=== PATIENT | male | born 1960 | race Caucasian/White ===

== ENCOUNTER → 2017-07-27 08:25 | Outpatient (CLI) | payer OTHER, SELFPAY ==
[2017-07-27 08:06] VITALS: BP 151/102; BMI 27.6
[2017-07-27 10:45] LABS: Cholesterol 182 mg/dL (200); High Density Lipoprotein 36 mg/dL; PSA,Total - Annual Screen 2.32 ng/mL (0.00-4.00); Triglycerides 161 mg/dL; Very Low Density Lipoprotein 32 mg/dL (5-40)
== END ==
PROVIDERS: Family Provider Internal Medicine; PCP Internal Medicine; Visit Provider Internal Medicine
DX: Z00.00 Encounter for general adult medical examination without abnormal findings (principal); E78.5 Hyperlipidemia, unspecified; Z12.5 Encounter for screening for malignant neoplasm of prostate
CPT/HCPCS: 36415; 80061; 84153; G0103

== ENCOUNTER 2017-12-21 11:30 | Emergency (ER) | payer OTHER, SELFPAY ==
[2017-12-21 11:30] VITALS: BP 149/95; PULSE 65; RESP 16; TEMP 36.8; O2SAT 98; BMI 27.1
--- NOTE | 2017-12-21 11:48 | ED.VISSUMM ---
- ER Visit Summary Date of Service: 12/21/17 Chief Complaint: Painful lump over medial malleolus History of Present Illness: The patient is a 57 M who presents with acute swelling over the medial malleolus left ankle. He states there is no history of trauma. He has no pain with movement. He denies fever, chills night sweats. He denies history of gout. He states this has never occurred before. There are no alleviating, precipitating or exacerbating factors. Physical Examination: There is swelling over the medial malleolus with mild discomfort. The area is firm and has consistency of a ganglion cyst. Patient has palpable DP and PT pulse. He has full active range of motion. There is no erythema, warmth, fluctuance or induration. There is no lymphangitis nor is there any popliteal angle lymphadenopathy Test Results: None Emergency Department Course and Treatment: Will anesthetize area. Will attempt to aspirate fluid and then injected with 1 cc of Decadron and 2 cc of lidocaine Treatment Plan: Inject ganglion cyst and patient tolerated procedure well. Disposition: Discharged to home Impression: Ganglion cyst left medial ankle This note was generated with [employer] dictation software. It may contain incorrect words, spelling, and punctuation that were not noted in review of the chart prior to signing ED Disposition - Plan for ED Patient: Disposition: Home or Assisted Living Chief Complaint: Lower Extremity Injury Instructions: ED Cyst Ganglion Referrals: Adal Fry MD [Primary Care Provider] - As Needed
== END 2017-12-21 12:18 | disposition home or self-care (01) ==
PROVIDERS: Emergency Provider Emergency Medicine; Family Provider Internal Medicine; PCP Internal Medicine
DX: M67.472 Ganglion, left ankle and foot (principal); I10 Essential (primary) hypertension; K21.9 Gastro-esophageal reflux disease without esophagitis; Z79.899 Other long term (current) drug therapy; Z87.891 Personal history of nicotine dependence
CPT/HCPCS: 20612; 96374; 99282

== ENCOUNTER → 2018-03-04 16:10 | Outpatient (CLI) | payer OTHER, SELFPAY ==
--- NOTE | 2018-03-04 16:20 | MRI_ITS ---
STUDY: MRI LEFT ANKLE WITHOUT CONTRAST REASON FOR EXAM: Lump on the medial malleolus for 2 months, no specific injury. TECHNIQUE: Standardized fat and water weighted pulse sequences were obtained in all 3 orthogonal planes. COMPARISON: None. FINDINGS: There is mild edema in the medial subcutis adipose space without discrete soft tissue mass. Normal posterior tibialis tendon. There is a small type II accessory navicular. Normal flexor digitorum longus tendon. Normal flexor hallucis longus tendon. Normal peroneus longus and brevis tendons. Normal tibialis anterior tendon. Normal extensor hallucis longus tendon. Normal extensor digitorum longus tendons. There is mild Achilles tendinosis with mild fusiform thickening in the watershed zone (inversion recovery sagittal image 10) measuring 0.9 cm in AP dimension without discrete tendon tear. Normal plantar fascia. Normal plantar calcaneal tubercles. Normal intrinsic muscles of the rearfoot. Normal distal tibiofibular syndesmotic ligamentous complex. There is a chronic sprain of the anterior talofibular ligament (inversion recovery axial image 11). There is a chronic sprain of the calcaneofibular ligament (inversion recovery axial image 12). Normal subtalar ligaments and sinus tarsi. Normal deltoid ligamentous complexes. Normal plantar calcaneonavicular (spring) ligament. There are small anterior osteophytes of the distal tibia. Normal talar dome. Normal subtalar articulations. Normal talonavicular articulation. Normal calcaneocuboid articulation. Normal navicular-cuneiform articulations. There is an osseous excrescence of the medial malleolus (T1 axial images 10, 11; T2 coronal image 18), likely accounting for the palpable abnormality. There is a small cyst in the medial malleolus (inversion recovery sagittal image 4) and a small ossicle at the distal aspect of the medial malleolus (T1 sagittal image 6). There is chronic healed fracture deformity of the distal fibula (T1 sagittal images 16, 17). There is mild cystic change in the superior body of the calcaneus adjacent to the sinus tarsi. MRI/Lower Ext Joint Only (Routine) IMPRESSION: Osseous excrescence of the medial malleolus, likely accounting for the palpable abnormality. Chronic sprains of the anterior talofibular and calcaneofibular ligaments. Mild Achilles tendinosis. Chronic healed fracture deformity of the distal fibula. Mild edema in the medial subcutis adipose space without demonstrated soft tissue mass. Electronically Signed: Andrew Plunkett MD at 8:28 EDT Tel , Service support ,
== END ==
LOC: MRI 16:11
PROVIDERS: Family Provider Family Medicine; PCP Family Medicine; Visit Provider Podiatrist
DX: M79.9 Soft tissue disorder, unspecified (principal); M89.272 Other disorders of bone development and growth, left ankle and foot
CPT/HCPCS: 73721

== ENCOUNTER → 2018-04-29 08:10 | Outpatient (CLI) | payer OTHER, SELFPAY ==
--- NOTE | 2018-04-29 08:13 | CT_ITS ---
STUDY: CT CHEST WITH CONTRAST REASON FOR EXAM: Male, 57 years old. Vomiting. Dysphagia. Weight loss. The patient has a history of esophageal carcinoma. RADIATION DOSAGE (If Supplied By Facility): CTDIvol = ( 15.69 ) mGy, DLP = ( 521.42 ) mGycm TECHNIQUE: Transaxial imaging was performed following intravenous administration of 100 ml of Isovue 300 contrast material. Multiplanar coronal and sagittal images were reformatted. Individualized dose optimization techniques were used for this CT. COMPARISON: Comparison is made with prior study dated January 16, 2017. FINDINGS: A left-sided portacatheter is seen with the tip in the superior vena cava. Once again, the patient is status post esophageal resection of the mid and distal portion of the esophagus with gastric pull-through anastomosis. This is unchanged. Minimal increased linear markings at the lung base suggestive of scarring. Stable 5 mm nodule is seen in the posteromedial aspect of the right lower lobe adjacent to the right hemidiaphragm. There is no demonstrated pleural abnormality. Normal heart and pericardium. There are multiple small lymph nodes within the mediastinum, which are normal in size and morphology most compatible with reactive lymph hyperplasia. Normal hilar regions. Normal enhanced pulmonary arteries. Normal aorta arch and descending thoracic aorta. There are multi-level degenerative changes of the thoracic spine. Atrophy of the pancreas. CT/Chest WITH Contrast IMPRESSION: Status post esophageal resection with a gastric pull-through surgery. There has been essentially no change since prior study. Electronically Signed: Camden Curiel MD at 15:45 EST Tel [phone], Service support ,
== END ==
LOC: CT 08:11
PROVIDERS: Family Provider Family Medicine; PCP Family Medicine; Referring Provider Nurse Practitioner Family; Visit Provider Nurse Practitioner Family
DX: R11.10 Vomiting, unspecified (principal); R12 Heartburn; Z85.01 Personal history of malignant neoplasm of esophagus
CPT/HCPCS: 71260; Q9967; A4216

== ENCOUNTER → 2018-05-20 09:40 | Outpatient (CLI) | payer OTHER, SELFPAY ==
[2018-05-13 08:35] VITALS: BMI 27.4
[2018-05-20 11:21] LABS: Hemoglobin A1c 6.2 % (4.2-6.3)
--- OUTSIDE RECORDS SUMMARY | 2018-07-13 14:06 | XMS RPT_ITS ---
:1960 Author Organization OHIP Support Name Relationship Address Phone CINTHIA VIRY Unavailable [address] + [address] [employer] Unavailable [address] + [place] [id number] VIRY VICENTE Unavailable [address] + [address] [employer] Unavailable [address] + [place] [address] VIRY VICENT[employer] Unavailable [address] + [address] [employer] Unavailable [address] + [place]ij[place] [address] VIRY VICENT[employer] Unavailable [address] + [address] [employer] Unavailable [address] + [place]hij[place] [address] V[employer]Y [employer] Unavailable [address] + [address] [employer] Unavailable [address] + [place]ij[place] [address] VIRY VICENTE Unavailable [address] + [place] [phone] [facility] [employer] Unavailable [address] + [place]ij[place] [address] VIRY VICENT[employer] Unavailable [address] + [place] [phone] [facility] [employer] Unavailable [address] + [place] [address] VIRY VICENT[facility] Unavailable [address] + [place] [phone] [facility] [address] + [place] [address] VIRY VICENTE Unavailable [address] + [address] + [place] [address] VIRY VICENTE Unavailable [address] + [address] + [place] [address] VIRY VICENTE Unavailable [address] + [address] Unavailable [address] + [place] [address] KEYLA MEYERS Unavailable [address] + [address] Unavailable [address] + [place] [address] KEYLA MEYERS Unavailable [address] + [address] Unavailable [address] + [place] [address] KEYLA MEYERS Unavailable [address] + [address] Unavailable [address] + [place] [address] Care Team Providers Name Role Phone Carrillo Burleson Attending Unavailable Dave Torres Primary Care Unavailable Dave Torres Referring Unavailable Kallie, Alexandria Attending Unavailable Carrillo Burleson Referring Unavailable Dave Torres Primary Care Unavailable Carrillo Burleson Consulting Unavailable Kevinghe, Efewongbe Attending Unavailable Yadie, Efewongbe Referring Unavailable Dave Torres Primary Care Unavailable Oleghe, Efewongbe Attending Unavailable Oleghe, Efewongbe Referring Unavailable Oleghe, Efewongbe Primary Care Unavailable Oleghe, Efewongbe Primary Care Unavailable Anderson, Luis Attending Unavailable Oleghe, Efewongbe Attending Unavailable Oleghe, Efewongbe Referring Unavailable Oleghe, Efewongbe Primary Care Unavailable Oleghe, Efewongbe Attending Unavailable Oleghe, Efewongbe Referring Unavailable Torres, Dave Primary Care Unavailable Prah, Carrillo Attending Unavailable Torres, Dave Referring Unavailable Torres, Dave Primary Care Unavailable Prah, Carrillo Consulting Unavailable Vasuing, Ventura Attending Unavailable Ventura Vicente Referring Unavailable Torres, Dave Primary Care Unavailable Kallie, Alexandria Attending Unavailable Torres, Dave Referring Unavailable Torres, Dave Primary Care Unavailable Prah, Carrillo Consulting Unavailable Kallie, Alexandria Attending Unavailable Kallie, Alexandria Referring Unavailable Torres, Dave Primary Care Unavailable Prah, Carrillo Attending Unavailable Torres, Dave Referring Unavailable Torres, Dave Primary Care Unavailable Prah, Carrillo Consulting Unavailable Oleghe, Efewongbe Attending Unavailable Oleghe, Efewongbe Referring Unavailable Oleghe, Efewongbe Attending Unavailable Oleghe, Efewongbe Referring Unavailable Oleghe, Efewongbe Primary Care Unavailable Prah, Carrlilo Consulting Unavailable PROBLEMS PROBLEMS DATE TYPE CONDITION / CODE ATTENDING STATUS SOURCE 05/01/2018 Unknown K21.9 - Carrillo Burleson Active [facility] reflux disease [facility] without Repository esophagitis / K21.9(ICD-10) 04/24/2018 Unknown C15.5 - Malignant Kallie, Alexandria Active [facility] neoplasm of lower Community third of Hospital esophagus / Repository C15.5(ICD-10) 04/24/2018 Unknown R11.10 - Kallie, Alexandria Active [facility] Vomiting, Community unspecified / Hospital R11.10(ICD-10) Repository 04/24/2018 Unknown R12 - Heartburn / Kallie, Alexandria Active [facility] R12(ICD-10) [facility] Hospital Repository 04/24/2018 Unknown Z85.01 - Personal Kallie, Alexandria Active [facility] history of Community malignant Hospital neoplasm of Repository esophagus / Z85.01(ICD-10) 02/11/2018 Unknown C15.9 - [facility] esophagus, [facility] unspecified / Repository C15.9(ICD-10) 01/07/2018 Unknown R73.9 - Oleghe, Active [facility] Hyperglycemia, [place] Community unspecified / Hospital R73.9(ICD-10) Repository 01/07/2018 Unknown M67.472 - Olealexie, Active [facility] Ganglion, left [facility] ankle and foot / Hospital M67.472(ICD-10) Repository 07/27/2017 Unknown E78.5 - Oleghe, Active [facility] Hyperlipidemia, [facility] unspecified / Hospital E78.5(ICD-10) Repository 07/27/2017 Unknown Z00.00 - Olealexie, Active [facility] Encounter for [facility] medical Repository examination without abnormal findings / Z00.00(ICD-10) PROCEDURES PROCEDURES No Procedure Records FoundRESULTS RESULTS HEMOGLOBIN A1C Collected: 05/20/2018 Status: F Source: [place] 9:43 AM [facility] REPOSITORY TYPE CODE TESTS RESULT OUT OF RANGE REFERENCE UNITS LAB L501.9985 4.2-6.3 % Normal HGB A1C 6.2 Performed By: #### L501.9985 #### [facility] [address] [place], [address] INTERNAL MEDICINE Observed: 05/13/2018 Status: F Source: [place] OFFICE VISIT 4:41 PM [facility] REPOSITORY [facility] [address] [place] [address] [place] [address] OFFICE VISIT Date of Service: 05/13/18 MR#: [id number] Acct: [id number] Name: SEAN MEYERS Rep #: [id number] : 1960 Provider: Adal Fry MD Age/Sex: 57/M Location: [facility] Status: Signed Intake Vital Signs05/13/18 Body Mass Index (BMI) 27.4 05/13/18 Height 5 ft 11 in Intake Visit Reasons: 3 MO FU Chief Complaint: 3 month follow-up Is patient in pain?: No Allergies No Known Allergies Allergy (Verified 05/01/18 15:57) Medications Ibuprofen 200 mg PO PRN PRN 12/21/17 [History Confirmed 05/01/18] amlodipine 10 mg tablet 10 mg PO DAILY #90 tab 02/11/18 [Rx Confirmed 05/01/18] omeprazole 40 mg capsule,delayed release 40 mg PO DAILY #90 cap 04/16/18 [Rx Confirmed 05/01/18] [facility] Medical History Elevated cholesterol (Acute) Viral URI (Acute) Dehydration (Acute) Lung nodule (Acute) Esophageal cancer (Acute) Surgical History History of esophagectomy (Acute) History of tonsillectomy (Acute) Family History Mother Diabetes Arthritis Alzheimers disease Father Pancreatic cancer Hypertension Social History Smoking Status: Never smoker alcohol intake: current alcohol intake frequency: holidays/special occasions only substance use type: does not use what type of physical activity do you participate in: aerobics, weight training frequency: 5-6 times per week HPI HPI Chief Complaint: 3 month follow-up Details: SEAN MEYERS, is a 57yo M who presents to the office today for of hypertension. He states that at home his blood pressure typically is in the 130s over 90s mmHg. He reports compliance with his medications. He however has a blood pressure of about 146/100 during this visit. His is on his way to [place] for the of his grandchild. ROS Const Constitutional: No weight change, body ache, chills, fatigue, sleep problems, fever(s), change in appetite, snoring, weakness, frequent falls, headache(s) or excessive sweating Eyes Eyes: No change in vision, eye pain, light sensitivity or blurry vision ENT ENT: No headache(s), abnormal hearing, ear pain, tinnitus, nasal congestion, sore throat or neck pain Resp Respiratory: No snoring, cough, shortness of breath or wheezing Cardio Cardiology: No excessive sweating, chest pain at rest, chest pain with exertion, shortness of breath, dyspnea on exertion, palpitations, orthopnea or lightheadedness Gastro GI: Positive for heartburn; no abdominal pain, change in bowel habits, constipation, diarrhea, vomiting, nausea/dyspepsia or cramping Genitourinary Male: No painful urination, urinary incontinence, urinary frequency, urinary urgency, blood in urine, testicle pain or other Musc Musculoskeletal: No neck pain, abnormal walking, joint pain, back pain, limited range of motion, numbness or tingling Skin Skin: No redness, dry skin, itching, lesions, wounds or rash Neuro Neurology: No weakness, frequent falls, headache(s), abnormal hearing, abnormal walking, numbness, tingling, abnormal speech, dizziness or memory loss Psych Psychiatric: No change in appetite, No memory loss, No anxiety, No depression, No Thoughts of harming yourself/Others Endo Endocrine: No fatigue, excessive sweating, cold intolerance, increased thirst/drinking, heat intolerance, flushing or increased hunger Aller/Imm Allergy/Immunologic: No wheezing, itchy eyes, hives or seasonal allergy symptoms Prashant/Lymp Hematologic/Lymphatic: No easy bleeding, easy bruising or enlarged lymph nodes Exam Const General: cooperative, no acute distress, well developed Orientation: alert, awake, oriented x3 HENMT Head: normal to inspection, normocephalic Ears: hearing grossly normal bilaterally, TM's normal bilaterally Resp Effort AND Inspection: normal respiratory effort, able to speak in complete sentences Auscultation: Bilateral: Clear to Auscultation Cardio Rate: regular rate Rhythm: regular rhythm Heart Sounds: S1 normal, S2 normal GI Palpation: soft, no hepatosplenomegaly Neuro General: alert, awake, oriented x3, moves all extremities, CN's II-XI intact bilaterally Extrem General: no pedal edema Other: Psych Appearance: grossly normal Mental Status: mental status grossly normal Affect: normal affect Assessment AND Plan 1. Hypertension I10 Plan Patient reports better control at home however it appears elevated during this visit. Probably situational. On his way to [place] for the best of his fourth grandchild and is excited. We will make no changes to his medication at this time. Advised to continue blood pressure log and call the office if he notes persistently elevated blood pressure. Continue lifestyle and dietary modifications. 2. GERD (gastroesophageal reflux disease) K21.9 Plan Has noted worsening reflux especially at night. CAT scan done by oncology with no concerns. Scheduled to have an EGD with Dr. Small on 03 June. Continue omeprazole Will follow. This note was generated with [employer] dictation software. It may contain incorrect words, spelling, and punctuation that were not noted in checking the note before signing. Coding Level of Care Code Off vis,est,level 3 Diagnoses Hypertension I10 GERD (gastroesophageal reflux disease) K21.9 05/13/18 1641 <Electronically signed by Adal Fry MD> Date Adal Fry MD Cosigner Signature: Date (if applicable) CC: ONCOLOGY VISIT REPORT Observed: 05/01/2018 Status: F Source: [place] 5:11 PM [facility] RE[facility] [place] [address] OFFICE VISIT Date of Service: 05/01/18 1553 MR#: [id number] Acct: [id number] Name: SEAN MEYERS Rep #: [id number] : 1960 From: Carrillo Burleson MD Age/Sex: 57/M Location: [facility] Status: Signed Subjective - Date of Service Date of Service:: 05/01/18 - Chief Complaint F/U for GEJ adenocarcinoma, CT results. - History of Present Illness 57 year old man was in his usual state of health until May 2014. He experienced unintentional weight loss of nearly 50 pounds, accompanied by dysphagia. He underwent endoscopy on 11/13/2014. An esophageal mass was noted approximately 38 cm from the incisors. Pathology returned positive for invasive, poorly differentiated adenocarcinoma, CEA positive, p53 positive, CK 7-8 positive. He underwent a staging PET scan on 11/30/2014, which identified an area of avidity in the mid-distal esophagus generating an SUV of 37.2 and measuring 5.8 cm x 4.7 cm, as well as uptake in the left upper abdomen adjacent to the left hemidiaphragm with an SUV of 18.3. That area measured 20.5 x 28.9 mm. He completed 6 full cycles of concomitant chemoradiation with carboplatin and paclitaxel from 12/09/2014 through 01/13/2015. He underwent laparoscopic gastric devascularization on 03/16/2015 under the care of Dr. Simon at [facility] and later a minimally-invasive Lencho-Jaison esophagectomy per Dr. Simon and Dr. Pickens at [facility] on 04/02/2015. Postop course was complicated by hypertension and tachycardia. Final pathology showed the tumor measuring 5.7 x 3.7 x 1 cm with depth of invasion to adventitia. Surgical margins were uninvolved. Quiñones's esophagus was present. Post-treatment PET obtained 07/30/[address] chest and esophagram were obtained 01/16/2017 to address c/o retrosternal discomfort and vomiting after food in the evenings. CT showed stable changes, no evidence of metastatic disease and esophagram showed status post tracheal resection with gastric pull-through through with no evidence of recurrent mass or obstruction. He is on observation. CT chest was ordered for dysphagia and comes for follow up. - Past Medical/Social History Past Medical History Past Medical History: GERD,Hypertension Other Past Medical History: LUNGE NODULE DEHYDRATION VIRAL UPPER RESPIRATORY INFECTION ELEVATED CHOLESTEROL Cancer: Esophageal cancer Past Surgical History Surgical: Tonsillectomy Other Surgical History: esophagectomy Mar 2015 Family History Paternal Past Medical History: Hypertension Paternal History of Cancer Pancreatic cancer Maternal Past Medical History: Alzheimer's disease,Arthritis,Diabetes mellitus, Hypertension Social History Social History: No changes Smoking Status Never smoker Review of Systems Constitutional:: Denies: Fever, Sweats, Weight loss, Appetite change, Chills Gastrointestinal:: Reports: Reflux, Dysphagia Vital Signs Height 5 ft 11 in Weight: 88.904 kg Weight in Pounds 196.0 lbs Pulse Ox 97 - Physical Exam General: Alert, Oriented x3, No apparent distress Diagnostic Data: 04/29/[address]/Chest WITH Contrast IMPRESSION: Status post esophageal resection with a gastric pull-through surgery. There has been essentially no change since prior study. Electronically Signed: Camden Curiel MD at 15:45 ES Assessment and Plan Lower Esophageal cancer-adenocarcinoma, S/P chemoradiation therapy and surgery. CT chest shows no evidence of disease. Dysphagia? recurrence Plan is to obtain GI consult with Dr. Small. RTC 3 months Primary Care Provider: Dave Torres Referring Provider: Carrillo Burleson MD - Problem List (1) Cancer of lower third of esophagus Status: Resolved (2) History of esophageal cancer Status: Chronic (3) Dysphagia Status: Acute Code Visit Office Visits / Consults: [id number] OV L4 Est 05/01/18 1711 <Electronically signed by Carrillo Burleson MD> Date Carrillo Burleson MD Cosigner Signature: Date (if applicable) CC: Soy Small CHEST WITH CONTRAST Observed: 04/29/2018 Status: F Source: [place] 8:13 AM [facility] REPOSITORY [facility] Imaging Services [address] [place] [address] Chest WITH Contrast MR#: [id number] Acct: [id number] Name: SEAN MEYERS Rep #: [id number] : 1960 M 57 From: Camden Curiel MD PCP: Dave Torres MD Status: REG CLI Study: Chest WITH Contrast Date of Exam: 04/29/18 Exam# [id number] Ordering Dr: Alexandria Arreguin MESS ATTENDANT-Concepción STUDY: CT CHEST WITH CONTRAST REASON FOR EXAM: Male, 57 years old. Vomiting. Dysphagia. Weight loss. The patient has a history of esophageal carcinoma. RADIATION DOSAGE (If Supplied By Facility): CTDIvol = ( 15.69 ) mGy, DLP = ( 521.42 ) mGycm TECHNIQUE: Transaxial imaging was performed following intravenous administration of 100 ml of Isovue 300 contrast material. Multiplanar coronal and sagittal images were reformatted. Individualized dose optimization techniques were used for this CT. COMPARISON: Comparison is made with prior study dated January 16, 2017. FINDINGS: A left-sided portacatheter is seen with the tip in the superior vena cava. Once again, the patient is status post esophageal resection of the mid and distal portion of the esophagus with gastric pull-through anastomosis. This is unchanged. Minimal increased linear markings at the lung base suggestive of scarring. Stable 5 mm nodule is seen in the posteromedial aspect of the right lower lobe adjacent to the right hemidiaphragm. There is no demonstrated pleural abnormality. Normal heart and pericardium. There are multiple small lymph nodes within the mediastinum, which are normal in size and morphology most compatible with reactive lymph hyperplasia. Normal hilar regions. Normal enhanced pulmonary arteries. Normal aorta arch and descending thoracic aorta. There are multi-level degenerative changes of the thoracic spine. Atrophy of the pancreas. CT/Chest WITH Contrast IMPRESSION: Status post esophageal resection with a gastric pull-through surgery. There has been essentially no change since prior study. Electronically Signed: Camden Curiel MD at 15:45 EST Tel [phone], Service support , CC: Dave Torres MD; Alexandria Arreguin NP Change Management Administrator: Signed ONCOLOGY VISIT REPORT Observed: 04/24/2018 Status: F Source: [place] 11:51 AM [facility] REPOSITORY [facility] [address] [place] [id number] OFFICE VISIT Date of Service: 04/23/18 1406 MR#: [id number] Acct: [id number] Name: SEAN MEYERS Rep #: [id number] : 1960 From: Alexandria Arreguin NP-Concepción Age/Sex: 57/M Location: [facility] Status: Signed Subjective - Date of Service Date of Service:: 04/23/18 - Chief Complaint Acute visit- Dysphagia, reflux, vomiting - History of Present Illness 57 year old man was in his usual state of health until May 2014. He experienced unintentional weight loss of nearly 50 pounds, accompanied by dysphagia. He underwent endoscopy on 11/13/2014. An esophageal mass was noted approximately 38 cm from the incisors. Pathology returned positive for invasive, poorly differentiated adenocarcinoma, CEA positive, p53 positive, CK 7-8 positive. He underwent a staging PET scan on 11/30/2014, which identified an area of avidity in the mid-distal esophagus generating an SUV of 37.2 and measuring 5.8 cm x 4.7 cm, as well as uptake in the left upper abdomen adjacent to the left hemidiaphragm with an SUV of 18.3. That area measured 20.5 x 28.9 mm. He completed 6 full cycles of concomitant chemoradiation with carboplatin and paclitaxel from 12/09/2014 through 01/13/2015. He underwent laparoscopic gastric devascularization on 03/16/2015 under the care of Dr. Simon at [facility] and later a minimally-invasive Lencho-Jaison esophagectomy per Dr. Simon and Dr. Pickens at [facility] on 04/02/2015. Postop course was complicated by hypertension and tachycardia. Final pathology showed the tumor measuring 5.7 x 3.7 x 1 cm with depth of invasion to adventitia. Surgical margins were uninvolved. Quiñones's esophagus was present. Post-treatment PET obtained 07/30/[address] chest and esophagram were obtained 01/16/2017 to address c/o retrosternal discomfort and vomiting after food in the evenings. CT showed stable changes, no evidence of metastatic disease and esophagram showed status post tracheal resection with gastric pull-through through with no evidence of recurrent mass or obstruction. He is on observation. - Interval History The patient is presenting to clinic for an acute visit at his request with c/o heartburn and vomiting. Reports he is able to eat relatively large breakfast and light lunch with no difficulties. The evening meal he takes at 4 pm and vomiting at midnight. x 4 months worsening. Estimates emesis is occurring approximately twice to 3 times per week. Adherent to PPI. C/o fatigue, typically active kayaking and hiking through the summer and now is unable to engage in activity outside of work. Lost approx 10 lb/2 weeks according to his scale at home. - Past Medical/Social History Past Medical History Past Medical History: GERD,Hypertension Other Past Medical History: LUNGE NODULE DEHYDRATION VIRAL UPPER RESPIRATORY INFECTION ELEVATED CHOLESTEROL Cancer: Esophageal cancer Past Surgical History Surgical: Tonsillectomy Other Surgical History: esophagectomy Mar 2015 Family History Paternal Past Medical History: Hypertension Paternal History of Cancer Pancreatic cancer Maternal Past Medical History: Alzheimer's disease,Arthritis,Diabetes mellitus, Hypertension Social History Social History: No changes Smoking Status Never smoker Review of Systems Constitutional:: Reports: Fatigue, Weight loss. Denies: Fever, Sweats, Appetite change, Chills Cardiovascular:: Denies: Chest pain, Palpitations, Dyspnea on exertion, Orthopnea, PND, Shortness of breath Respiratory: Denies: Cough, Hemoptysis, Shortness of Breath, Wheezing Gastrointestinal:: Reports: Vomiting, Reflux. Denies: Abdominal pain, Nausea, Diarrhea, Constipation, Melena, Hematochezia Genitourinary: Denies: Dysuria, Hematuria, Urinary frequency, Flank pain Musculoskeletal:: Denies: Back pain, Myalgia, Arthralgia Skin: Denies: Rash, Skin Changes, Wounds Neurological:: Denies: Headache, Dizziness, Numbness, Tingling, Visual changes, Tinnitus, Hearing loss Psychiatric: Denies: Anxiety, Depression, Homicidal Ideations, Suicidal Ideations Vital Signs Height 5 ft 11 in Weight: 196 lb Weight in Pounds 196.0 lbs Pulse Ox 97 - Physical Exam General: Alert, Oriented x3, No apparent distress HEENT: Atraumatic, Normocephalic Oropharynx:: Negative for: Dry mucosa, Ulcerated lesions Neck:: Supple, Trachea midline. Negative for: JVD, bilateral Cardiac:: Regular rate, Regular rhythm, Normal S1, Normal S2. Negative for: Murmur Lungs: Clear to auscultation, Excusion symmetrical. Negative for: Rhonchi, Wheezes Abdomen:: Bowel sounds x 4, Soft, Non-tender, Non-distended. Negative for: Hepatosplenomegaly Extremities:: Negative for: Cyanosis, Edema Neurological: Neuro grossly intact Skin:: Negative for: Lesions, Rash, Petechiae, Ecchymosis Psychiatric:: Appropriate affect, Euthymic Lymphatics:: Negative for: Cervical lymphadenopathy, Supraclavicular lymphadenopathy, Axillary lymphadenopathy Assessment and Plan 1. 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 Pickens/Dr. Simon on 04/02/15. 2. Acute vomiting/worsening reflux- Concerning as symptoms are accompanied by approx 10 lb weight loss/2 weeks and fatigue/generalized weakness. Patient adherent to use of PPI and has not made dietary changes. Orders placed for CT chest, although direct visualization will likely be necessary. RTO 1-2 days after scan to review results, high probability patient will require referral to Dr. Small for EGD. Patient was in agreement with the aforementioned plan. Alexandria Arreguin, MSN, COMMUNITY DEVELOPMENT COORDINATOR-C, AOCNP Primary Care Provider: Dave Torres Referring Provider: Carrillo Burleson MD - Problem List (1) Cancer of lower third of esophagus Status: Resolved (2) Vomiting Status: Acute Qualifiers: Vomiting Intractability: unspecified Nausea presence: without nausea (3) Weight loss Status: Acute 04/24/18 1151 <Electronically signed by Alexandria Arreguin MESS ATTENDANT-C> Date Alexandria Arreguin MESS ATTENDANT-C Cosigner Signature: Date (if applicable) CC: CBC W/DIFF, AUTOMATED Collected: 04/23/2018 Status: F Source: [place] 3:00 PM [facility] REPOSITORY Order Comment: Reason for Laboratory Test . TYPE CODE TESTS RESULT OUT OF RANGE REFERENCE UNITS LAB L100.1000 4.4-11.0 K/mm3 Normal WBC 8.2 LAB L100.1200 4.6-6.2 M/mm3 Normal RBC 5.20 LAB L100.1300 13.0-16.5 g/dl Normal HGB 15.2 LAB L100.1400 40-54 % Normal HCT 45.0 LAB L100.1500 80-94 fL Normal MCV 86.5 LAB L100.1600 27.0-32.0 pg Normal MCH 29.2 LAB L100.1700 32-36 g/gl Normal MCHC 33.8 LAB L100.1810 11.6-14.6 % Normal RDW CV 13.9 LAB L100.1820 35.1-43.9 fl High RDW SD 44.0 LAB L100.1900 150-450 K/mm3 Normal PLT 210 LAB L100.2000 6.2-12.0 fl Normal MPV 11.1 LAB L100.2100 47-70 % High NEUT% 74.9 LAB L100.2200 19-41 % Low LY% 14.8 LAB L100.2300 0-10 % Normal MONO% 8.2 LAB L100.2400 0-5 % Normal EO% 1.3 LAB L100.2500 0-1 % Normal BASO% 0.6 LAB L100.2550 0.0-0.9 % Normal IM GRAN % 0.200 Result Comment: IG% - Immature Granulocytes (promyelocytes, myelocytes and metamyelocytes) > 1% indicates that a LEFT SHIFT is Present. LAB L100.2620 2.0-7.7 X10 3/uL Normal Absolute Neut 6.1 LAB L100.2720 0.83-4.51 X10 3/ul Normal Absolute Lymph 1.21 Performed By: #### L100.0100 #### [facility] [address] [place], [place], [address] COMPREHENSIVE METABOLIC Collected: 04/23/2018 Status: F Source: [facility] 3:00 PM [facility] Order Comment: Reason for Laboratory Test . TYPE CODE TESTS RESULT OUT OF RANGE REFERENCE UNITS LAB L501.0100 74-106 mg/dL Normal GLU 80 Result Comment: Please note revised GLUCOSE reference range effective 2017. LAB L501.1000 7-18 mg/dL High BUN 20 LAB L501.1100 0.70-1.30 mg/dL Normal CREAT,SERUM 1.10 Result Comment: The validity of the calculated GFR AND GFRAA in patients over 70 years has not been determined. Clinical correlation is essential. LAB L501.1110 >60 mL/min Normal EST GFR 73 Result Comment: Non- GFR Calc LAB L501.1115 >60 mL/min Normal EST GFR - AA 88 Result Comment: GFR Calc LAB L501.1255 ml/min Normal Estimated CRCL 77.01 LAB L501.1300 10-20 RATIO Normal BUN/CRE 18.2 LAB L501.1500 6.4-8. g/dL Normal 2 T PROT 7.3 LAB L501.1800 3.2-5. g/dL Normal 0 ALB 3.8 LAB L501.1950 2.2-4. g/dL Normal 2 GLOB 3.5 LAB L501.2000 0.9-2. RATIO Normal 4 A/G 1.1 LAB L501.2200 8.5-10 mg/dL Normal .1 CA 8.7 LAB L501.4100 15-37 U/L Normal AST 20 LAB L501.4305 45-117 U/L High ALK P 149 LAB L501.4405 16-61 U/L Normal ALT 25 LAB L501.4600 0.20-1 mg/dL High .00 T BILI 1.10 LAB L501.5300 136-14 mmol/L Normal 5 NA 141 LAB L501.5600 3.5-5. mmol/L Normal 1 K 3.8 LAB L501.5900 98-107 mmol/L Normal CL 107 LAB L501.6100 21.0-3 mmol/L Normal 2.0 CO2 27.0 LAB L501.6200 5-15 Normal GAP 7 Performed By: #### L500.4050 #### [facility] [address] [facility] [place], [address] LOWER EXT JOINT ONLY Observed: 03/04/2018 Status: F Source: [place] (ROUTINE) 4:21 PM [facility] RE[facility]IT[facility] Imaging Services [address] [place] [address] Lower Ext Joint Only (Routine) MR#: [id number] Acct: [id number] Name: SEAN MEYERS Rep #: [id number] : 1960 M 57 From: Andrew Plunkett MD PCP: Dave Torres MD Status: REG CLI Study: Lower Ext Joint Only (Routine) Date of Exam: 03/04/18 Exam# [id number] Ordering Dr: Ventura Vicente DPMurali STUDY: MRI LEFT ANKLE WITHOUT CONTRAST REASON FOR EXAM: Lump on the medial malleolus for 2 months, no specific injury. TECHNIQUE: Standardized fat and water weighted pulse sequences were obtained in all 3 orthogonal planes. COMPARISON: None. FINDINGS: There is mild edema in the medial subcutis adipose space without discrete soft tissue mass. Normal posterior tibialis tendon. There is a small type II accessory navicular. Normal flexor digitorum longus tendon. Normal flexor hallucis longus tendon. Normal peroneus longus and brevis tendons. Normal tibialis anterior tendon. Normal extensor hallucis longus tendon. Normal extensor digitorum longus tendons. There is mild Achilles tendinosis with mild fusiform thickening in the watershed zone (inversion recovery sagittal image 10) measuring 0.9 cm in AP dimension without discrete tendon tear. Normal plantar fascia. Normal plantar calcaneal tubercles. Normal intrinsic muscles of the rearfoot. Normal distal tibiofibular syndesmotic ligamentous complex. There is a chronic sprain of the anterior talofibular ligament (inversion recovery axial image 11). There is a chronic sprain of the calcaneofibular ligament (inversion recovery axial image 12). Normal subtalar ligaments and sinus tarsi. Normal deltoid ligamentous complexes. Normal plantar calcaneonavicular (spring) ligament. There are small anterior osteophytes of the distal tibia. Normal talar dome. Normal subtalar articulations. Normal talonavicular articulation. Normal calcaneocuboid articulation. Normal navicular-cuneiform articulations. There is an osseous excrescence of the medial malleolus (T1 axial images 10, 11; T2 coronal image 18), likely accounting for the palpable abnormality. There is a small cyst in the medial malleolus (inversion recovery sagittal image 4) and a small ossicle at the distal aspect of the medial malleolus (T1 sagittal image 6). There is chronic healed fracture deformity of the distal fibula (T1 sagittal images 16, 17). There is mild cystic change in the superior body of the calcaneus adjacent to the sinus tarsi. MRI/Lower Ext Joint Only (Routine) IMPRESSION: Osseous excrescence of the medial malleolus, likely accounting for the palpable abnormality. Chronic sprains of the anterior talofibular and calcaneofibular ligaments. Mild Achilles tendinosis. Chronic healed fracture deformity of the distal fibula. Mild edema in the medial subcutis adipose space without demonstrated soft tissue mass. Electronically Signed: Andrew Plunkett MD at 8:28 EDT Tel , Service support , CC: Ventura Vicente DPM; Dave Torres MD Change Management Administrator: Signed INTERNAL MEDICINE Observed: 02/11/2018 Status: F Source: [place] OFFICE VISIT 3:29 PM [facility] REPOSIT[facility] [address] [place] [address] [place] [address] OFFICE VISIT Date of Service: 02/11/18 MR#: [id number] Acct: [id number] Name: SEAN MEYERS Rep #: [id number] : 1960 Provider: Adal Fry MD Age/Sex: 57/M Location: [facility] Status: Signed Intake Vital Signs02/11/18 Height 5 ft 11 in Intake Visit Reasons: 1 MO FU Chief Complaint: Follow up Hypertension Is patient in pain?: No Allergies No Known Allergies Allergy (Verified 12/21/17 11:33) Medications Ibuprofen 200 mg PO PRN PRN 12/21/17 [History Confirmed 12/21/17] Omeprazole 40 mg PO DAILY 12/21/17 [History Confirmed 12/21/17] amlodipine 10 mg tablet 10 mg PO DAILY #90 tab 02/11/18 [Rx Confirmed 02/11/18] PFSH Medical History Elevated cholesterol (Acute) Viral URI (Acute) Dehydration (Acute) Lung nodule (Acute) Esophageal cancer (Acute) Surgical History History of esophagectomy (Acute) History of tonsillectomy (Acute) Family History Mother Diabetes Arthritis Alzheimers disease Father Pancreatic cancer Hypertension Social History Smoking Status: Never smoker alcohol intake: current alcohol intake frequency: holidays/special occasions only substance use type: does not use what type of physical activity do you participate in: aerobics, weight training frequency: 5-6 times per week HPI HPI Chief Complaint: Follow up Hypertension Details: SEAN MEYERS, is a 57yo M who presents to the office today for follow-up of his blood pressure. He was recently started on amlodipine. He has tolerated the medication well. He has no complaints at this time. ROS Const Constitutional: No weight change, body ache, chills, fatigue, sleep problems, fever(s), change in appetite, snoring, weakness, frequent falls, headache(s) or excessive sweating Eyes Eyes: No change in vision, eye pain, light sensitivity or blurry vision ENT ENT: No headache(s), abnormal hearing, ear pain, tinnitus, nasal congestion, sore throat or neck pain Resp Respiratory: No snoring, cough, shortness of breath or wheezing Cardio Cardiology: No excessive sweating, chest pain at rest, chest pain with exertion, shortness of breath, dyspnea on exertion, palpitations, orthopnea or lightheadedness Gastro GI: No abdominal pain, change in bowel habits, constipation, diarrhea, vomiting, nausea/dyspepsia or cramping Genitourinary Male: No painful urination, urinary incontinence, urinary frequency, urinary urgency, blood in urine, testicle pain or other Musc Musculoskeletal: No neck pain, abnormal walking, joint pain, back pain, limited range of motion, numbness or tingling Skin Skin: No redness, dry skin, itching, lesions, wounds or rash Neuro Neurology: No weakness, frequent falls, headache(s), abnormal hearing, abnormal walking, numbness, tingling, abnormal speech, dizziness or memory loss Psych Psychiatric: No change in appetite, No memory loss, No anxiety, No depression, No Thoughts of harming yourself/Others Endo Endocrine: No fatigue, excessive sweating, cold intolerance, increased thirst/drinking, heat intolerance, flushing or increased hunger Aller/Imm Allergy/Immunologic: No wheezing, itchy eyes, hives or seasonal allergy symptoms Prashant/Lymp Hematologic/Lymphatic: No easy bleeding, easy bruising or enlarged lymph nodes Exam Const General: cooperative, no acute distress, well developed Orientation: alert, awake, oriented x3 [facility] Head: normal to inspection, normocephalic Ears: hearing grossly normal bilaterally, TM's normal bilaterally Resp Effort AND Inspection: normal respiratory effort, able to speak in complete sentences Auscultation: Bilateral: Clear to Auscultation Cardio Rate: regular rate Rhythm: regular rhythm Heart Sounds: S1 normal, S2 normal GI Palpation: soft, no hepatosplenomegaly Neuro General: alert, awake, oriented x3, moves all extremities, CN's II-XI intact bilaterally Extrem General: no pedal edema Other: 3x3cm firm medial ankle swelling noted. Non Tender. No discharge appreciated. Psych Appearance: grossly normal Mental Status: mental status grossly normal Affect: normal affect Assessment AND Plan 1. Hypertension I10 Plan Better however, still not optimally controlled. Increase amlodipine to 10 mg daily. Continue dietary and lifestyle modifications. Follow-up in 3 months 2. Borderline type 2 diabetes mellitus R73.03 Plan A1c of 6.1. Significant family history of diabetes in both his parents. Lifestyle and dietary modifications discussed. Repeat A1c in 3 months if still elevated, will start on metformin. Orders Orders: 3. Bone spur of left ankle M77.52 Plan Following up with podiatry. Plan is for surgery. Will follow 4. Health care maintenance Z00.00 Plan Colonoscopy done last year by DR. Small. 10 year follow up recommended. This note was generated with Star[employer], Part of [employer] software. It may contain incorrect words, spelling, and punctuation that were not noted in checking the note before signing. Plan Detail Other Medications New: Discontinued: Follow Up 3 Months Coding Level of Care Code Off vis,est,level 3 Diagnoses Hypertension I10 Borderline type 2 diabetes mellitus R73.03 Bone spur of left ankle M77.52 Health care maintenance Z00.00 02/11/18 1529 <Electronically signed by Adal Fry MD> Date Adal Fry MD Cosigner Signature: Date (if applicable) CC: ONCOLOGY VISIT REPORT Observed: 02/11/2018 Status: F Source: [place] 12:21 PM [facility] RE[facility] [address] [place] [address]. [place] [address] OFFICE VISIT Date of Service: 02/11/18 1211 MR#: [id number] Acct: [id number] Name: SEAN MEYERS Rep #: [id number] : 1960 From: Carrillo Burleson MD Age/Sex: 57/M Location: [facility] Status: Signed Subjective - Date of Service Date of Service:: 02/11/18 - Chief Complaint Follow up-esophageal cancer - History of Present Illness 57 year old man was in his usual state of health until May 2014. He experienced unintentional weight loss of nearly 50 pounds, accompanied by dysphagia. He underwent endoscopy on 11/13/2014. An esophageal mass was noted approximately 38 cm from the incisors. Pathology returned positive for invasive, poorly differentiated adenocarcinoma, CEA positive, p53 positive, CK 7-8 positive. He underwent a staging PET scan on 11/30/2014, which identified an area of avidity in the mid-distal esophagus generating an SUV of 37.2 and measuring 5.8 cm x 4.7 cm, as well as uptake in the left upper abdomen adjacent to the left hemidiaphragm with an SUV of 18.3. That area measured 20.5 x 28.9 mm. He completed 6 full cycles of concomitant chemoradiation with carboplatin and paclitaxel from 12/09/2014 through 01/13/2015. He underwent laparoscopic gastric devascularization on 03/16/2015 under the care of Dr. Simon at [facility] and later a minimally-invasive Wellston-Jaison esophagectomy per Dr. Simon and Dr. Pickens at [facility] on 04/02/2015. Postop course was complicated by hypertension and tachycardia. Final pathology showed the tumor measuring 5.7 x 3.7 x 1 cm with depth of invasion to adventitia. Surgical margins were uninvolved. Quiñones's esophagus was present. Post-treatment PET obtained 07/30/[address] chest and esophagram were gained 01/16/2017 to address c/o retrosternal discomfort and vomiting after food in the evenings. CT showed stable changes, no evidence of metastatic disease and esophagram showed status post tracheal resection with gastric pull-through through with no evidence of recurrent mass or obstruction. He is on observation, comes in for follow up. - Past Medical/Social History Past Medical History Past Medical History: GERD,Hypertension Other Past Medical History: LUNGE NODULE DEHYDRATION VIRAL UPPER RESPIRATORY INFECTION ELEVATED CHOLESTEROL Cancer: Esophageal cancer Past Surgical History Surgical: Tonsillectomy Other Surgical History: esophagectomy Mar 2015 Family History Paternal Past Medical History: Hypertension Paternal History of Cancer Pancreatic cancer Maternal Past Medical History: Alzheimer's disease,Arthritis,Diabetes mellitus, Hypertension Social History Social History: No changes Smoking Status Never smoker Review of Systems Constitutional:: Denies: Fever, Sweats, Weight loss, Appetite change, Chills Cardiovascular:: Denies: Chest pain, Palpitations, Dyspnea on exertion, Orthopnea, PND, Shortness of breath Respiratory: Denies: Cough, Hemoptysis, Shortness of Breath, Wheezing Gastrointestinal:: Reports: Reflux - at night. Genitourinary: Denies: Dysuria, Hematuria, 15, Flank pain Musculoskeletal:: Denies: Back pain, Myalgia, Arthralgia Skin: Denies: Rash, Skin Changes, Wounds Neurological:: Denies: Headache, Dizziness, Visual changes, Tinnitus, Hearing loss Psychiatric: Denies: Anxiety, Depression, Homicidal Ideations, Suicidal Ideations Vital Signs Height 5 ft 11 in Weight: 90.718 kg Weight in Pounds 200.0 lbs Pulse Ox 98 - Physical Exam General: Alert, Oriented x3, No apparent distress, - - Port L IC area. HEENT: Atraumatic, PERRLA, EOMI, Normocephalic Oropharynx:: Dry mucosa Neck:: Supple, Trachea midline. Negative for: JVD, bilateral Cardiac:: Regular rate, Regular rhythm, Normal S1, Normal S2. Negative for: Murmur Lungs: Clear to auscultation, Excusion symmetrical. Negative for: Rhonchi, Wheezes Abdomen:: Bowel sounds x 4, Soft, Non-tender, Non-distended, - - small scars.. Negative for: Hepatosplenomegaly Extremities:: Negative for: Cyanosis, Edema Neurological: Neuro grossly intact Skin:: Negative for: Lesions, Rash, Petechiae, Ecchymosis Psychiatric:: Appropriate affect, Euthymic Lymphatics:: Negative for: Cervical lymphadenopathy, Supraclavicular lymphadenopathy, Axillary lymphadenopathy Laboratory Data: Laboratory Tests WBC 7.4 (4.4-11.0) K/mm3 RBC 5.23 (4.6-6.2) M/mm3 Hgb 15.0 (13.0-16.5) g/dl Assessment and Plan Lower Esophageal cancer-adenocarcinoma, S/P chemoradiation therapy and surgery. No evidence of disease clinically. Plan is to continue observation. RTC 6 months Primary Care Provider: Dave Torres Referring Provider: Carrillo Burleson MD - Problem List (1) Cancer of lower third of esophagus Status: Resolved (2) History of esophageal cancer Status: Chronic Code Visit Office Visits / Consults: 36623 OV L3 Est 02/11/18 1221 <Electronically signed by Carrillo Burleson MD> Date Carrillo Burleson MD Cosigner Signature: Date (if applicable) CC: CBC W/DIFF, AUTOMATED Collected: 02/11/2018 Status: F Source: [place] 11:02 AM [facility] RE[facility] Order Comment: Reason for Laboratory Test OV TYPE CODE TESTS RESULT OUT OF RANGE REFERENCE UNITS LAB L100.1000 4.4-11.0 K/mm3 Normal WBC 7.4 LAB L100.1200 4.6-6.2 M/mm3 Normal RBC 5.23 LAB L100.1300 13.0-16.5 g/dl Normal HGB 15.0 LAB L100.1400 40-54 % Normal HCT 45.5 LAB L100.1500 80-94 fL Normal MCV 87.0 LAB L100.1600 27.0-32.0 pg Normal MCH 28.7 LAB L100.1700 32-36 g/gl Normal MCHC 33.0 LAB L100.1810 11.6-14.6 % Normal RDW CV 14.2 LAB L100.1820 35.1-43.9 fl High RDW SD 45.4 LAB L100.1900 150-450 K/mm3 Normal PLT 202 LAB L100.2000 6.2-12.0 fl Normal MPV 10.4 LAB L100.2100 47-70 % High NEUT% 76.7 LAB L100.2200 19-41 % Low LY% 15.2 LAB L100.2300 0-10 % Normal MONO% 5.1 LAB L100.2400 0-5 % Normal EO% 2.0 LAB L100.2500 0-1 % Normal BASO% 0.7 LAB L100.2550 0.0-0.9 % Normal IM GRAN % 0.300 Result Comment: IG% - Immature Granulocytes (promyelocytes, myelocytes and metamyelocytes) > 1% indicates that a LEFT SHIFT is Present. LAB L100.2620 2.0-7.7 X10 3/uL Normal Absolute Neut 5.7 LAB L100.2720 0.83-4.51 X10 3/ul Normal Absolute Lymph 1.13 Performed By: #### L100.0100, L500.4050 #### [facility] [address] [place], [address] COMPREHENSIVE METABOLIC Collected: 02/11/2018 Status: F Source: [facility] 11:02 AM [facility] RE[facility] Order Comment: Reason for Laboratory Test OV TYPE CODE TESTS RESULT OUT OF RANGE REFERENCE UNITS LAB L501.0100 74-106 mg/dL High GLU 131 Result Comment: Fasting Glucose result greater than or equal to 126 mg/dL suggests DIABETES MELLITUS per A.D.A. criteria. Please note revised GLUCOSE reference range effective 2017. LAB L501.1000 7-18 mg/dL Normal BUN 14 LAB L501.1100 0.70-1.30 mg/dL Normal CREAT,SERUM 1.13 Result Comment: The validity of the calculated GFR AND GFRAA in patients over 70 years has not been determined. Clinical correlation is essential. LAB L501.1110 >60 mL/min Normal EST GFR 71 Result Comment: Non- GFR Calc LAB L501.1115 >60 mL/min Normal EST GFR - AA 85 Result Comment: GFR Calc LAB L501.1255 ml/min Normal Estimated CRCL 74.97 LAB L501.1300 10-20 RATIO Normal BUN/CRE 12.4 LAB L501.1500 6.4-8. g/dL Normal 2 T PROT 7.5 LAB L501.1800 3.2-5. g/dL Normal 0 ALB 3.8 LAB L501.1950 2.2-4. g/dL Normal 2 GLOB 3.7 LAB L501.2000 0.9-2. RATIO Normal 4 A/G 1.0 LAB L501.2200 8.5-10 mg/dL Low .1 CA 8.4 LAB L501.4100 15-37 U/L Normal AST 18 LAB L501.4305 45-117 U/L High ALK P 150 LAB L501.4405 16-61 U/L Normal ALT 30 LAB L501.4600 0.20-1 mg/dL Normal .00 T BILI 0.80 LAB L501.5300 136-14 mmol/L Normal 5 NA 139 LAB L501.5600 3.5-5. mmol/L Normal 1 K 3.8 LAB L501.5900 98-107 mmol/L Normal CL 106 LAB L501.6100 21.0-3 mmol/L Normal 2.0 CO2 24.0 LAB L501.6200 5-15 Normal GAP 9 Performed By: #### L100.0100, L500.4050 #### [facility] [address] [place], [address] INTERNAL MEDICINE Observed: 01/14/2018 Status: F Source: [place] OFFICE VISIT 4:28 PM [facility] REPOSIT[facility] [address] [place] [address] [place] [address] OFFICE VISIT Date of Service: 01/07/18 MR#: [id number] Acct: [id number] Name: SEAN MEYERS Rep #: [id number] : 1960 Provider: Adal Fry MD Age/Sex: 57/M Location: [facility] Status: Signed Intake Vital Signs01/07/18 Height 5 ft 11 in 01/07/18 Weight: 194 lb 2 oz Intake Visit Reasons: F/U Chief Complaint: Follow up Hypertension Ortho Nurse Required: No Accompanied by: None Is patient in pain?: No Allergies No Known Allergies Allergy (Verified 12/21/17 11:33) Medications Ibuprofen 200 mg PO PRN PRN 12/21/17 [History Confirmed 12/21/17] Omeprazole 40 mg PO DAILY 12/21/17 [History Confirmed 12/21/17] amlodipine 5 mg tablet 5 mg PO QDAY #30 tab 01/07/18 [Rx Confirmed 01/07/18] PFSH Medical History Elevated cholesterol (Acute) Viral URI (Acute) Dehydration (Acute) Lung nodule (Acute) Esophageal cancer (Acute) Surgical History History of esophagectomy (Acute) History of tonsillectomy (Acute) Family History Mother Diabetes Arthritis Alzheimers disease Father Pancreatic cancer Hypertension Social History Smoking Status: Never smoker alcohol intake: current alcohol intake frequency: holidays/special occasions only substance use type: does not use what type of physical activity do you participate in: aerobics, weight training frequency: 5-6 times per week HPI HPI Chief Complaint: Follow up Hypertension Details: SEAN MEYERS, is a 57 M who presents to the office today for follow-up. At his last visit he was noted to have elevated blood pressure. He had been on amlodipine in the past however since his diagnosis of esophageal cancer had not been on any medications. Blood pressure over the last 3 months of average around 140s-150s over 90s. Recent left ankle swelling thought to be a ganglion cyst. Drained in the ER however, it recurred after 2 weeks. He denies any significant pain or discharge. He also denies chills, fever or otherwise feeling of unwell. ROS Const Constitutional: No body ache, chills, fatigue, fever(s), frequent falls, headache(s), weight change, sleep problems, change in appetite, snoring, excessive sweating or weakness Eyes Eyes: No blurry vision, change in vision, eye pain or light sensitivity ENT ENT: No headache(s), abnormal hearing, ear pain, tinnitus, nasal congestion, nasal discharge, sore throat or neck pain Resp Respiratory: No snoring, cough, shortness of breath or wheezing Cardio Cardiology: No excessive sweating, chest pain at rest, chest pain with exertion, shortness of breath, dyspnea on exertion, orthopnea, palpitations or lightheadedness Gastro GI: No abdominal pain, change in bowel habits, diarrhea, constipation, nausea/dyspepsia or cramping Musc Musculoskeletal: No neck pain, abnormal walking, joint pain, back pain, limited range of motion, numbness or tingling Skin Skin: No redness, dry skin, itching, lesions, wounds or rash Neuro Neurology: No frequent falls, headache(s), weakness, abnormal hearing, abnormal walking, numbness, tingling, abnormal speech, dizziness or memory loss Psych Psychiatric: No change in appetite, No memory loss, No anxiety, No depression, No Thoughts of harming yourself/Others Endo Endocrine: No fatigue, excessive sweating, cold intolerance, increased thirst/drinking, heat intolerance, increased hunger or flushing Aller/Imm Allergy/Immunologic: No wheezing, itchy eyes, seasonal allergy symptoms or hives Prashant/Lymp Hematologic/Lymphatic: No easy bleeding, easy bruising or enlarged lymph nodes Exam Const General: cooperative, no acute distress, well developed Orientation: alert, awake, oriented x3 HENMT Head: normal to inspection, normocephalic Ears: hearing grossly normal bilaterally, TM's normal bilaterally Resp Effort AND Inspection: normal respiratory effort, able to speak in complete sentences Auscultation: Bilateral: Clear to Auscultation Cardio Rate: regular rate Rhythm: regular rhythm Heart Sounds: S1 normal, S2 normal GI Palpation: soft, no hepatosplenomegaly Neuro General: alert, awake, oriented x3, moves all extremities, CN's II-XI intact bilaterally Extrem General: no pedal edema Other: 3x3cm firm medial ankle swelling noted. Non Tender. No discharge appreciated. Psych Appearance: grossly normal Mental Status: mental status grossly normal Affect: normal affect Assessment AND Plan 1. Hypertension I10 Plan Not controlled by life style modifications. Will start on 5 mg of Amlodipine daily. Increase to 10mg after BID if average blood pressure still in the 140's. A1C also ordered due to hyperglycemia Continue blood pressure log. Follow up in 1 month. 2. Ganglion cyst of left foot M67.472 Plan Recurred after drainage in the ER. Referred to Podiatry. Orders Referrals: 3. Hyperlipidemia E78.5 Plan Slightly low HDL, otherwise well controlled. Continue life style modifications. 4. Cancer of lower third of esophagus C15.5 Plan Continue follow-up with oncology. So far, there has been no recurrence. This note was generated with [employer] dictation software. It may contain incorrect words, spelling, and punctuation that were not noted in checking the note before signing. Plan Detail Other Orders Orders: Other Medications New: Coding Level of Care Code Off vis,est,level 4 Diagnoses Hypertension I10 Ganglion cyst of left foot M67.472 Hyperlipidemia E78.5 Cancer of lower third of esophagus C15.5 01/14/18 1628 <Electronically signed by Adal Fry MD> Date Adal Fry MD Cosigner Signature: Date (if applicable) CC: CBC W/DIFF, AUTOMATED Collected: 01/07/2018 Status: F Source: [place] 9:43 AM [facility] REPOSITORY Order Comment: Reason for Laboratory Test . TYPE CODE TESTS RESULT OUT OF RANGE REFERENCE UNITS LAB L100.1000 4.4-11.0 K/mm3 Normal WBC 5.8 LAB L100.1200 4.6-6.2 M/mm3 Normal RBC 5.36 LAB L100.1300 13.0-16.5 g/dl Normal HGB 15.6 LAB L100.1400 40-54 % Normal HCT 46.3 LAB L100.1500 80-94 fL Normal MCV 86.4 LAB L100.1600 27.0-32.0 pg Normal MCH 29.1 LAB L100.1700 32-36 g/gl Normal MCHC 33.7 LAB L100.1810 11.6-14.6 % Normal RDW CV 13.8 LAB L100.1820 35.1-43.9 fl Normal RDW SD 43.3 LAB L100.1900 150-450 K/mm3 Normal PLT 181 LAB L100.2000 6.2-12.0 fl Normal MPV 10.9 LAB L100.2100 47-70 % High NEUT% 75.2 LAB L100.2200 19-41 % Low LY% 13.3 LAB L100.2300 0-10 % Normal MONO% 8.8 LAB L100.2400 0-5 % Normal EO% 2.2 LAB L100.2500 0-1 % Normal BASO% 0.3 LAB L100.2550 0.0-0.9 % Normal IM GRAN % 0.200 Result Comment: IG% - Immature Granulocytes (promyelocytes, myelocytes and metamyelocytes) > 1% indicates that a LEFT SHIFT is Present. LAB L100.2620 2.0-7.7 X10 3/uL Normal Absolute Neut 4.3 LAB L100.2720 0.83-4.51 X10 3/ul Low Absolute Lymph 0.77 Performed By: #### L100.0100, L500.4050 #### [facility] Laboratory [address] [place], [place], [address] COMPREHENSIVE METABOLIC Collected: 01/07/2018 Status: F Source: [facility] 9:43 AM [facility] REPOSIT[facility] Order Comment: Reason for Laboratory Test . TYPE CODE TESTS RESULT OUT OF RANGE REFERENCE UNITS LAB L501.0100 74-106 mg/dL Normal GLU 92 Result Comment: Please note revised GLUCOSE reference range effective 2017. LAB L501.1000 7-18 mg/dL High BUN 20 LAB L501.1100 0.70-1.30 mg/dL Normal CREAT,SERUM 1.03 Result Comment: The validity of the calculated GFR AND GFRAA in patients over 70 years has not been determined. Clinical correlation is essential. LAB L501.1110 >60 mL/min Normal EST GFR 79 Result Comment: Non- GFR Calc LAB L501.1115 >60 mL/min Normal EST GFR - AA 95 Result Comment: GFR Calc LAB L501.1255 ml/min Normal Estimated CRCL 82.25 LAB L501.1300 10-20 RATIO Normal BUN/CRE 19.4 LAB L501.1500 6.4-8. g/dL Normal 2 T PROT 7.4 LAB L501.1800 3.2-5. g/dL Normal 0 ALB 3.8 LAB L501.1950 2.2-4. g/dL Normal 2 GLOB 3.6 LAB L501.2000 0.9-2. RATIO Normal 4 A/G 1.1 LAB L501.2200 8.5-10 mg/dL Normal .1 CA 8.9 LAB L501.4100 15-37 U/L Normal AST 20 LAB L501.4305 45-117 U/L High ALK P 147 LAB L501.4405 16-61 U/L Normal ALT 30 LAB L501.4600 0.20-1 mg/dL High .00 T BILI 1.10 LAB L501.5300 136-14 mmol/L Normal 5 NA 137 LAB L501.5600 3.5-5. mmol/L Normal 1 K 4.0 LAB L501.5900 98-107 mmol/L Normal CL 106 LAB L501.6100 21.0-3 mmol/L Normal 2.0 CO2 28.0 LAB L501.6200 5-15 Low GAP 3 Performed By: #### L100.0100, L500.4050 #### [facility] [address] [place], [address] HEMOGLOBIN A1C Collected: 01/07/2018 Status: F Source: [place] 9:42 AM [facility] REPOSITORY TYPE CODE TESTS RESULT OUT OF RANGE REFERENCE UNITS LAB L501.9985 4.2-6.3 % Normal HGB A1C 6.1 Performed By: #### L501.9985 #### [facility] [address] [place], [address] EMERGENCY DEPARTMENT Observed: 12/21/2017 Status: F Source: [place] SUMMARY 12:09 PM [facility] REPOSITORY [facility] Medical Records Department [address] [place] [address] Emergency Department Summary 12/21/17 1148 MR#: [id number] Acct: [id number] Name: SEAN MEYERS Rep #: [id number] : 1960 57 From: Luis Anderson MD PCP: Adal Fry MD Status: REG ER - ER Visit Summary Date of Service: 12/21/17 Chief Complaint: Painful lump over medial malleolus History of Present Illness: The patient is a 57 M who presents with acute swelling over the medial malleolus left ankle. He states there is no history of trauma. He has no pain with movement. He denies fever, chills night sweats. He denies history of gout. He states this has never occurred before. There are no alleviating, precipitating or exacerbating factors. Physical Examination: There is swelling over the medial malleolus with mild discomfort. The area is firm and has consistency of a ganglion cyst. Patient has palpable DP and PT pulse. He has full active range of motion. There is no erythema, warmth, fluctuance or induration. There is no lymphangitis nor is there any popliteal angle lymphadenopathy Test Results: None Emergency Department Course and Treatment: Will anesthetize area. Will attempt to aspirate fluid and then injected with 1 cc of Decadron and 2 cc of lidocaine Treatment Plan: Inject ganglion cyst and patient tolerated procedure well. Disposition: Discharged to home Impression: Ganglion cyst left medial ankle This note was generated with Firefly Mobile dictation software. It may contain incorrect words, spelling, and punctuation that were not noted in review of the chart prior to signing ED Disposition - Plan for ED Patient: Disposition: Home or Assisted Living Chief Complaint: Lower Extremity Injury Instructions: ED Cyst Ganglion Referrals: Adal Fry MD [Primary Care Provider] - As Needed What to do if you have Problems For any increased pain, shortness of breath, bleeding, nausea or vomiting, chest pain, or any unexpected problems, contact your Primary Care Provider. Call [facility] ([phone]) or report to the closest Emergency Room. Call 911 if necessary. 12/21/17 1209 <Electronically signed by Luis Anderson MD> Date Luis Anderson MD Cosigner Signature (If Indicated): Date CC: Adal Fry MD INTERNAL MEDICINE Observed: 07/27/2017 Status: F Source: [place] OFFICE VISIT 8:41 AM [facility] Internal Medicine [address] [place] [address] OFFICE VISIT Date of Service: 07/27/17 MR#: [id number] Acct: [id number] Name: SEAN MEYERS Murali Rep #: [id number] : 1960 Provider: Adal Fry MD Age/Sex: 56/M Location: [facility] Status: Signed Intake Vital Signs07/27/17 Body Mass Index (BMI) 27.6 07/27/17 Blood Pressure 151/102 07/27/17 Height 5 ft 11 in 07/27/17 Weight: 197 lb 07/27/17 Body Mass Index (BMI) 27.4 Intake Visit Reasons: NEEDS PCP SCHEDULED BY [facility] Chief Complaint: Establish care. Is patient in pain?: No Allergies No Known Allergies Allergy (Verified 07/25/17 13:01) Medications Omeprazole 40 mg PO DAILY 30 Days #30 capsule. 07/25/17 [Rx] PFSH Medical History Elevated cholesterol (Acute) Viral URI (Acute) Dehydration (Acute) Lung nodule (Acute) Esophageal cancer (Acute) Surgical History History of esophagectomy (Acute) History of tonsillectomy (Acute) Family History Mother Diabetes Arthritis Alzheimers disease Father Pancreatic cancer Hypertension Social History Smoking Status: Never smoker alcohol intake: current alcohol intake frequency: holidays/special occasions only substance use type: does not use what type of physical activity do you participate in: aerobics, weight training frequency: 5-6 times per week HPI HPI Chief Complaint: Establish care. Details: SEAN MEYERS, is a 56yo M who presents to the office today to establish care. His has a past medical history of hypertension, hyperlipidemia, GERD and esophageal cancer status post surgery and chemotherapy. He currently follows up with the oncology group. He has no acute complaints at this time. Blood pressure in the office today is noted to be mildly elevated at 138/97 mmHg. Patient is currently not on any medication. At some point he was treated with an antihypertensive however during his chemotherapy, he states that he lost a significant amount of weight and so was taken off his blood pressure medications due to very well controlled blood pressures. He was also on a lipid-lowering medication which was discontinued after weight loss. He has not had a lipid profile in years. Last colonoscopy was last year. Per patient, next recommended is in 10 years. He follows up with Dr. Small. He has had his flu shot. ROS Const Constitutional: No weight change, body ache, chills, fatigue, sleep problems, fever(s), change in appetite, snoring, weakness, frequent falls, headache(s) or excessive sweating Eyes Eyes: No change in vision, eye pain, light sensitivity or blurry vision ENT ENT: No headache(s), abnormal hearing, ear pain, tinnitus, nasal congestion, sore throat or neck pain Resp Respiratory: No snoring, cough or shortness of breath Cardio Cardiology: No excessive sweating, chest pain at rest, chest pain with exertion, shortness of breath, dyspnea on exertion, palpitations, orthopnea or lightheadedness Gastro GI: No abdominal pain, change in bowel habits, constipation, diarrhea, vomiting, nausea/dyspepsia or cramping Musc Musculoskeletal: No neck pain, abnormal walking, joint pain, back pain, limited range of motion, numbness or tingling Skin Skin: No redness, dry skin, itching, lesions, wounds or rash Neuro Neurology: No weakness, frequent falls, headache(s), abnormal hearing, abnormal walking, numbness, tingling, abnormal speech, dizziness or memory loss Psych Psychiatric: No change in appetite, No memory loss, No anxiety, No depression, No Thoughts of harming yourself/Others Endo Endocrine: No fatigue, excessive sweating, cold intolerance, increased thirst/drinking, heat intolerance, flushing or increased hunger Aller/Imm Allergy/Immunologic: No itchy eyes, hives or seasonal allergy symptoms Prashant/Lymp Hematologic/Lymphatic: No easy bleeding, easy bruising or enlarged lymph nodes Exam Const General: cooperative, no acute distress, well developed Orientation: alert, awake, oriented x3 HENIN Head: normal to inspection, normocephalic Ears: hearing grossly normal bilaterally, TM's normal bilaterally Resp Effort AND Inspection: normal respiratory effort, able to speak in complete sentences Auscultation: Bilateral: Clear to Auscultation Cardio Rate: regular rate Rhythm: regular rhythm Heart Sounds: S1 normal, S2 normal GI Palpation: soft, no hepatosplenomegaly Neuro General: alert, awake, oriented x3, moves all extremities, CN's II-XI intact bilaterally Extrem General: no pedal edema Psych Appearance: grossly normal Mental Status: mental status grossly normal Affect: normal affect Assessment AND Plan 1. Hypertension, unspecified type I10 Plan Chronic. Currently not on any medication. Blood pressure in the office today is 138/97. Patient does state that it typically runs around this range. Lifestyle modifications recommended for now with exercise, diet rich in fruits and veggies and low sodium. Blood pressure check once weekly. Follow-up in 3 months. 2. Hyperlipidemia E78.5 Plan Has had no recent follow-up since his significant weight loss. Previously on a lipid-lowering medication. Will get a lipid profile today. Follow-up with results. Lifestyle modifications as above. Orders Orders: 3. Preventative health care Z00.00 Plan He has had his flu shot. PSA screen. Orders Orders: 4. Esophageal cancer C15.9 Plan Status post surgery and chemotherapy. Patient is doing well. Follows up with oncology. Will follow. This note was generated with StarCite, Part of Active Networkation software. It may contain incorrect words, spelling, and punctuation that were not noted in checking the note before signing. Plan Detail Follow Up 3 Months Coding Level of Care Code Off vis,new,level 3 Diagnoses Hypertension, unspecified type I10 Hypertension type: unspecified Hyperlipidemia E78.5 [facility] health care Z00.00 Esophageal cancer C15.9 07/27/17 0841 <Electronically signed by Adal Fry MD> Date Adal Fry MD Cosigner Signature: Date (if applicable) CC: LIPID PROFILE Collected: 07/27/2017 Status: F Source: [place] 8:32 AM [facility] REPOSITORY TYPE CODE TESTS RESULT OUT OF RANGE REFERENCE UNITS LAB L501.4900 200 mg/dL Normal CHOL 182 Result Comment: <200 mg/dL Desirable 200-240 mg/dL Borderline >240 mg/dL High Risk LAB L501.5000 mg/dL Normal TRIG 161 Result Comment: The drugs N-Acetylcysteine and Metamizole may falsely depress this assay. Serum Triglycerides Reference Interval Normal <150 mg/dL Borderline high 150 - 199 mg/dL High 200 - 499 mg/dL Very High > or = 500 mg/dL LAB L501.6400 mg/dL Low HDL 36 Result Comment: The drugs N-Acetylcysteine and Metamizole may falsely depress this assay. Reference Range HDL <40 mg/dL Low HDL Cholesterol HDL >or= 60 mg/dL High HDL Cholesterol LAB L501.6500 0-130 mg/dL Normal LDL 114 LAB L501.6600 5-40 mg/dL Normal VLDL 32 Performed By: #### L500.4100, L501.9910 #### [facility] [address] [place], [address] PSA,TOTAL - ANNUAL Collected: 07/27/2017 Status: F Source: [place] SCREEN 8:32 AM [facility] REPOSITORY TYPE CODE TESTS RESULT OUT OF RANGE REFERENCE UNITS LAB L501.9910 0.00-4.00 ng/mL Normal PSA,TOT 2.32 SCREEN Result Comment: This test was performed using the TPSA assay method for the Delta ID chemistry system. Values obtained with different assay methods cannot be used interchangably. When changing PSA assays in the course of monitoring a patient, additional sequential testing should be carried out to confirm baseline values. Performed By: #### L500.4100, L501.9910 #### [facility] [address] [place], [place], [address] CBC W/DIFF, AUTOMATED Collected: 07/25/2017 Status: F Source: [place] 12:34 PM [facility] REPOSITORY TYPE CODE TESTS RESULT OUT OF RANGE REFERENCE UNITS LAB L100.1000 4.4-11.0 K/mm3 Normal WBC 8.3 LAB L100.1200 4.6-6.2 M/mm3 Normal RBC 5.27 LAB L100.1300 13.0-16.5 g/dl Normal HGB 15.5 LAB L100.1400 40-54 % Normal HCT 45.7 LAB L100.1500 80-94 fL Normal MCV 86.7 LAB L100.1600 27.0-32.0 pg Normal MCH 29.4 LAB L100.1700 32-36 g/gl Normal MCHC 33.9 LAB L100.1810 11.6-14.6 % Normal RDW CV 13.3 LAB L100.1820 35.1-43.9 fl Normal RDW SD 41.7 LAB L100.1900 150-450 K/mm3 Normal PLT 210 LAB L100.2000 6.2-12.0 fl Normal MPV 11.4 LAB L100.2100 47-70 % High NEUT% 82.7 LAB L100.2200 19-41 % Low LY% 9.8 LAB L100.2300 0-10 % Normal MONO% 5.2 LAB L100.2400 0-5 % Normal EO% 1.3 LAB L100.2500 0-1 % Normal BASO% 0.6 LAB L100.2550 0.0-0.9 % Normal IM GRAN % 0.400 Result Comment: IG% - Immature Granulocytes (promyelocytes, myelocytes and metamyelocytes) > 1% indicates that a LEFT SHIFT is Present. LAB L100.2620 2.0-7.7 X10 3/uL Normal Absolute Neut 6.8 LAB L100.2720 0.83-4.51 X10 3/ul Low Absolute Lymph 0.81 Performed By: #### L100.0100 #### [facility] [address] [facility] [place], [address] COMPREHENSIVE METABOLIC Collected: 07/25/2017 Status: F Source: [place] 12:33 PM [facility] REPOSITORY Order Comment: Reason for Laboratory Test SURVEILLANCE/OFFICE VISIT TYPE CODE TESTS RESULT OUT OF RANGE REFERENCE UNITS LAB L501.0100 74-106 mg/dL High GLU 111 Result Comment: Fasting Glucose result from 110 to <126 mg/dL suggests IMPAIRED HOMEOSTASIS per A.D.A. criteria. LAB L501.1000 7-18 mg/dL High BUN 19 LAB L501.1100 0.70-1.30 mg/dL Normal CREAT,SERUM 1.04 Result Comment: The validity of the calculated GFR AND GFRAA in patients over 70 years has not been determined. Clinical correlation is essential. LAB L501.1110 >60 mL/min Normal EST GFR 78 Result Comment: Non- GFR Calc LAB L501.1115 >60 mL/min Normal EST GFR - AA 94 Result Comment: GFR Calc LAB L501.1255 ml/min Normal Estimated CRCL 82.46 LAB L501.1300 10-20 RATIO Normal BUN/CRE 18.3 LAB L501.1500 6.4-8. g/dL Normal 2 T PROT 7.4 LAB L501.1800 3.2-5. g/dL Normal 0 ALB 3.9 LAB L501.1950 2.2-4. g/dL Normal 2 GLOB 3.5 LAB L501.2000 0.9-2. RATIO Normal 4 A/G 1.1 LAB L501.2200 8.5-10 mg/dL Normal .1 CA 8.6 LAB L501.4100 15-37 U/L Normal AST 16 LAB L501.4305 45-117 U/L High ALK P 157 LAB L501.4405 16-61 U/L Normal ALT 30 Result Comment: Please note revised ALT reference range effective 2017. LAB L501.4600 0.20-1.00 mg/dL Normal T BILI 1.00 LAB L501.5300 136-145 mmol/L Normal NA 140 LAB L501.5600 3.5-5.1 mmol/L Normal K 3.7 LAB L501.5900 98-107 mmol/L Normal CL 104 LAB L501.6100 21.0-32.0 mmol/L Normal CO2 27.0 LAB L501.6200 5-15 Normal GAP 9 Performed By: #### L500.4050 #### [facility] [address] [place], [address] ALLERGIES ALLERGIES DATE TYPE / CODE NAME / CODE REACTION SEVERITY SOURCE 05/01/2018 Drug No Known Unknown [facility] Allergy/4160 Allergies/F00 Hospital 11660(SNOMED [id number](RXNOR Repository CT) M) ENCOUNTERS ENCOUNTERS ADMIT/DISCHARGE ACCOUNT ADMITTING ENCOUNTER LOCATION SOURCE NUMBER CLASS 05/20/2018 [id number] Ambulatory [place] [address] [place] [address] ing:LAB Repository 05/13/2018/ [id number] Ambulatory BMSBuilding:B [place] 8 6 MS.[facility] Repository 05/01/2018 [id number] Ambulatory BMSBuilding:B [place] 9 MS.CF.[facility] Repository 05/01/2018 [id number] Ambulatory [address] ing:OMD Repository 04/29/2018 [id number] Ambulatory [place] 9 [facility] ing:CT Repository 04/23/2018 [id number] Ambulatory BMSBuilding:B [place] 3 MS.[facility] Repository 03/04/2018 [id number] Ambulatory [address] ing:MRI Repository 02/11/2018 [id number] Ambulatory BMSBuilding:B [place] 2 MS.CF.[facility] Repository 02/11/2018/ [id number] Ambulatory BMSBuilding:B [place] 8 9 MS.[facility] Repository 01/07/2018/ [id number] Ambulatory BMSBuilding:B [place] 8 6 MS.[facility] Repository 12/21/2017/ [id number] Emergency [place] 8 4 [facility] ing:ED Repository 07/27/2017 [id number] Ambulatory [place] 1 [facility] ing:MTLAB Repository 07/27/2017/ [id number] Ambulatory BMSBuilding:B [place] 8 5 MS.[facility] Repository 07/25/2017 [id number] Ambulatory BMSBuilding:B [place] 2 MS.[facility] Repository PAYERS PAYERS ENCOUNTER GUARANTOR PAYER SUBSCRIBER SOURCE 05/20/2018 SEAN ROBERT Primary SEAN WEINSTEIN Insurance:MEDICAL MOOREDOB: Community [address] [place] [address] [id number], [place] [address]Mxz: Number: Repository [id number] (HP) Date:5333-84-86Zz [place] [phone]: 05/20/2018 Secondary NOT GIVENUNK [place] Insurance:SELF PAY [facility] Number: Effective Repository Date:2018-05-20 05/13/2018 SEAN ROBERT Primary SEAN WEINSTEIN Insurance:MEDICAL MOOREDOB: [address] [id number], [place] [address]Dki: Number: Repository [id number] (HP) Date:3362-09-44Om [address] [address]FB: 05/13/2018 Secondary NOT GIVENUNK [place] Insurance:SELF PAY [facility] Number: Effective Repository Date:2018-05-07 05/01/2018 SEAN MEYERS94 Primary SEAN WEINSTEIN Insurance:MEDICAL MOOREDOB: [address] [id number] , [place] [address]Lal: Number: Repository [id number] (HP) Date:6609-82-74Ol [address] [address]NE: 05/01/2018 Secondary NOT GIVENUNK [place] Insurance:SELF PAY [facility] Number: Effective Repository Date:2018-05-01 05/01/2018 SEAN ROBERT Primary SEAN WEINSTEIN Insurance:MEDICAL MOOREDOB: [address] [id number], [place] [address]Zsf: Number: Repository [id number] (HP) Date:5370-86-30Kh [address] [address]CU: 05/01/2018 Secondary NOT GIVENUNK [place] Insurance:SELF PAY [facility] Number: Effective Repository Date:2016-10-10 04/29/2018 SEAN MEYERS94 Primary SEAN Campover[address] Insurance:MEDICAL MOOREDOB: Community [address] [place], [place] [address]-06-28[place], [place] [address]Srr: Number: Repository [id number] (HP) Date:6679-63-70Pa [place] [phone]: 04/29/2018 Secondary NOT GIVENUNK [place] Insurance:SELF PAY [facility] Number: Effective Repository Date:2018-04-23 04/23/2018 SEAN ROBERT Primary SEAN Campover[address] Insurance:MEDICAL MOOREDOB: Community [address] [place], [place] [address]27069-06-28[place], [place] [address]Rxw: Number: Repository [id number] (HP) Date:1743-24-05[place] [phone]: 04/23/2018 Secondary NOT GIVENUNK [place] Insurance:SELF PAY [facility] Number: Effective Repository Date:2018-04-23 03/04/2018 SEAN MEYERSRock Primary SEAN Campover[address] Insurance:MEDICAL MOOREDOB: Community [address] [place], [place] 927069-06-28[place], [place] [address]Pav: Number: Repository [id number] (HP) Date:0098-50-21Pg [address] [address]PY: 03/04/2018 Secondary NOT GIVENUNK [place] Insurance:SELF PAY [facility] Number: Effective Repository Date:2018-02-26 02/11/2018 SEAN ROBERT Primary SEAN Campover[address] Insurance:MEDICAL MOOREDOB: Community [address] [place] [address] [id number], [place] [address]Ahi: Number: Repository [id number] (HP) Date:8153-05-60Cd [address] [place] [address]FQ: 02/11/2018 Secondary NOT GIVENUNK [place] Insurance:SELF PAY [facility] Number: Effective Repository Date:2018-02-11 02/11/2018 SEAN MEYERS94 Primary SEAN Carrion [place] Insurance:MEDICAL MOOREDOB: Community [address] [place] [address] [id number], [place] [address]Pjn: Number: Repository [id number] (HP) Date:2029-83-14Eo [address] [address]DZ: 02/11/2018 Secondary NOT GIVENUNK [place] Insurance:SELF PAY [facility] Number: Effective Repository Date:2018-02-11 01/07/2018 SEAN MEYERS94 Primary SEAN Carrion [place] Insurance:MEDICAL MOOREDOB: Community [address] [place] [address] [id number], [place] [address]Erb: Number: Repository [id number] (HP) Date:3464-45-63Ic [address] [address]YQ: 01/07/2018 Secondary NOT GIVENUNK [place] Insurance:SELF PAY [facility] Number: Effective Repository Date:2018-01-07 12/21/2017 SEAN MEYERS94 Primary SEAN [address] Insurance:MEDICAL MOOREDOB: [address] [id number], [place] [address]Yen: Number: Repository [id number] (HP) Date:9348-46-61Pz [address] [address]JM: 12/21/2017 Secondary NOT GIVENUNK [place] Insurance:SELF PAY [facility] Number: Effective Repository Date:2017-12-21 07/27/2017 SEAN MEYERS94 Primary SEAN WEINSTEIN Insurance:MEDICAL LOCKWOODDOB: Community [address] [place], [place] [address] , [place] [address]Ese: Number: Repository [id number] (HP) Date:9288-80-61Tc [address] [address]SO: 07/27/2017 Secondary NOT GIVENUNK [place] Insurance:SELF PAY [facility] Number: Effective Repository Date:2017-07-27 07/27/2017 SEAN MEYERS94 Primary SEAN WEINSTEIN Insurance:MEDICAL LOCKWOODDOB: Community [address] [place], [place] [address]69-06-28[facility] [place] [address]Kak: Number: Repository [id number] (HP) Date:8156-74-67Al [address] [address]RX: 07/27/2017 Secondary NOT GIVENUNK [place] Insurance:SELF PAY [facility] Number: Effective Repository Date:2017-07-25 07/25/2017 SEAN MEYERS94 Primary SEAN WEINSTEIN Insurance:MEDICAL MOOREDOB: Community [address] [place], [place] [address] , [place] [address]Jfo: Number: Repository [id number] (HP) Date:2806-05-10Hj [address] [place] [address]HW: 07/25/2017 Secondary NOT GIVENUNK [place] Insurance:SELF PAY [facility] Number: Effective Repository Date:2017-07-25
== END ==
PROVIDERS: Family Provider Internal Medicine; PCP Internal Medicine; Referring Provider Internal Medicine; Visit Provider Internal Medicine
DX: R73.03 Prediabetes (principal)
CPT/HCPCS: 36415; 83036

== ENCOUNTER → 2018-08-12 07:07 | Outpatient (CLI) | payer OTHER, SELFPAY ==
[2018-07-29 14:25] VITALS: BMI 27.4
--- NOTE | 2018-08-12 07:13 | CT_ITS ---
STUDY: CT ABDOMEN WITH CONTRAST REASON FOR EXAM: Male, 57 years old. History of esophageal cancer. RADIATION DOSAGE (If Supplied By Facility): CTDIvol = ( 17.15 ) mGy, DLP = ( 1344.53 ) mGycm TECHNIQUE: Transaxial images were obtained post I.V. administration of Isovue 300 100 IV/Oral, and with oral contrast. Sagittal and coronal images were reconstructed. Individualized dose optimization techniques were used for this CT. COMPARISON: 04/29/2018 and 03/14/2016 FINDINGS: There is an 8 mm noncalcified nodule at the posterior medial right lung base, unchanged from prior imaging. Bibasilar atelectasis versus scar formation. The visualized portions of the heart are within normal limits. Normal liver. Normal gallbladder and extrahepatic biliary system. There is a 2 cm mildly heterogeneously enhancing exophytic lesion off of the superomedial splenic pole which is unchanged in size and appearance compared to prior imaging. Normal pancreas. Normal bilateral adrenal glands. There are hypoattenuated lesions within both kidneys which measure near water density, unchanged normal bilateral ureters. There is postoperative change from esophagectomy with gastric pull-through. Normal small intestine. Normal colon. The appendix is not definitively visualized. No pericecal inflammation. Normal abdominal aorta. Normal inferior vena cava. Normal retroperitoneum. Normal osseous structures. CT/Abdomen WITH IV Contrast IMPRESSION: 1. No evidence of an acute intra-abdominal abnormality. 2. 2 cm exophytic heterogeneously enhancing lesion off the superior medial splenic pole, unchanged from most recent imaging dated 04/29/2018 but increased in size compared to more remote imaging dated 03/14/2016 when it measured 1.6 cm. 3. Postoperative change from esophagectomy with gastric pull-through. 4. Simple appearing bilateral renal cysts Electronically Signed: Cecil Leon MD at 0:31 EST Tel , Service support ,
--- NOTE | 2018-08-12 07:13 | CT_ITS ---
STUDY: CT CHEST WITH CONTRAST REASON FOR EXAM: Male, 57 years old. History of esophageal cancer. RADIATION DOSAGE (If Supplied By Facility): CTDIvol = ( 17.15 ) mGy, DLP = ( 1344.53 ) mGycm TECHNIQUE: Transaxial imaging was performed following intravenous administration of Isovue 300 100 IV. Individualized dose optimization techniques were used for this CT. COMPARISON: 04/29/2018 FINDINGS: Bibasilar atelectasis versus scar formation. 8 mm nodule the posterior medial right lung base, unchanged from prior imaging. Trace bilateral pleural effusions. Normal heart and pericardium. Normal mediastinum. Normal hilar regions. Postoperative change from esophagectomy with gastric pull-through. No paraesophageal lymphadenopathy. Normal enhanced pulmonary arteries. Normal aorta arch and descending thoracic aorta. There are multi-level degenerative changes of the thoracic spine. 2 cm heterogeneously enhancing arising off the superior splenic pole, unchanged from prior imaging dated 04/29/2018. More remote imaging dated 03/14/2016 demonstrates prior measurement of 1.[address]/Chest WITH Contrast IMPRESSION: 1. 8 mm right posterior medial lung base nodule, unchanged. 2. Trace bilateral pleural effusions with bibasilar scar versus atelectasis. 3. Postoperative change from esophagectomy with gastric pull-through. 4. 2.0 cm heterogeneously enhancing exophytic lesion arising off the superior splenic pole of uncertain etiology, unchanged in size compared to most recent imaging dated 04/29/2018 but increased in size compared to more remote imaging dated 03/14/2016. Electronically Signed: Cecil Leon MD at 0:59 EST Tel , Service support ,
[2018-08-12 07:25] LABS: CREATININE FINGERSTICK 1.2 mg/dL (0.70-1.30); EGFR FINGERSTICK > 60.0000 mL/min (>60)
[2018-08-12] MEDS: 0.9% Saline Lock 10 ML Syringe IV (07:45)
== END ==
PROVIDERS: Family Provider Internal Medicine; PCP Internal Medicine; Referring Provider Internal Medicine Medical Oncology; Visit Provider Internal Medicine Medical Oncology
DX: Z85.01 Personal history of malignant neoplasm of esophagus (principal)
CPT/HCPCS: 71260; 74160; Q9967; A4216

== ENCOUNTER 2018-08-30 05:51 | Day surgery (SDC) | payer OTHER, SELFPAY ==
[2018-06-13 16:20] VITALS: BMI 27.4
[2018-08-15 15:08] VITALS: BMI 27.6
--- NOTE | 2018-08-28 15:40 | EKG12_ITS ---
Test Reason : PREOP Blood Pressure : / mmHG Vent. Rate : 064 BPM Atrial Rate : 064 BPM P-R Int : 174 ms QRS Dur : 096 ms QT Int : 378 ms P-R-T Axes : 033 -35 040 degrees QTc Int : 389 ms Sinus rhythm with Possible Premature atrial complexes with Aberrant conduction Possible Left atrial enlargement Left axis deviation Left ventricular hypertrophy Abnormal ECG Confirmed by PHILL HERNADEZ, JEISON ([id number]), continuity editor YEN BLACKMAN ([id number]) on 08/30/2018 8:03:44 AM Referred By: Ventura Vicente Confirmed By:JEISON POLLOCK MD
[2018-08-28 16:03] LABS: Absolute Lymphocyte Count 0.95 X10^3/ul (0.83-4.51); Absolute Neutrophil Count 5.7 X10^3/uL (2.0-7.7); Basophil# 0.08 X10^3/uL; Basophil% 1.1 % (0-1); Eosinophil# 0.14 X10^3/uL; Eosinophils% 1.9 % (0-5); Hematocrit 47.4 % (40-54); Hemoglobin 15.2 g/dl (13.0-16.5); Lymphocyte # 0.95 X10^3/ul (4.0); Lymphocyte % 12.7 % (19-41); Mean Corp Hgb Conc 32.1 g/gl (32-36); Mean Corpuscular Volume 87.5 fL (80-94); Mean Platelet Vol. 11.3 fl (6.2-12.0); Monocyte# 0.63 X10^3/uL; Monocyte% 8.4 % (0-10); Neutrophil # 5.67 X10^3/uL (2.7-7.7); Neutrophil % 75.6 % (47-70); POSITIVE COUNT NO; POSITIVE DIFFERENTIAL NO; POSITIVE MORPHOLOGY NO; Platelet Count 227 K/mm3 (150-450); RBC Distribution Width CV 14.3 % (11.6-14.6); RBC Distribution Width SD 45.3 fl (35.1-43.9); Red Blood Count 5.42 M/mm3 (4.6-6.2); White Blood Count 7.5 K/mm3 (4.4-11.0)
[2018-08-28 16:42] LABS: ALB/GLOB Ratio 1.1 RATIO (0.9-2.4); AST(SGOT) 23 U/L (15-37); Alanine Aminotransfer ALT/SGPT 30 U/L (16-61); Albumin, Serum 4.1 g/dL (3.2-5.0); Alkaline Phosphatase 176 U/L (45-117); Anion Gap 7 (5-15); BUN 20 mg/dL (7-18); BUN/Creat Ratio 18.7 RATIO (10-20); Calcium,Total 8.5 mg/dL (8.5-10.1); Chloride 107 mmol/L (98-107); Creatinine, Serum 1.07 mg/dL (0.70-1.30); EST Glomerular Filtration Rate 75 mL/min (>60); Est Glom Filt Rate - Afr Amer 91 mL/min (>60); Globulin 3.6 g/dL (2.2-4.2); Glucose 103 mg/dL (74-106); Potassium 3.6 mmol/L (3.5-5.1); Protein, Total 7.7 g/dL (6.4-8.2); Sodium Level 139 mmol/L (136-145)
[2018-08-30 06:07] VITALS: BP 134/91; PULSE 58; RESP 16; TEMP 36.7; O2SAT 100; BMI 27.6
--- NOTE | 2018-08-30 07:30 | RAD_ITS ---
STUDY: X-RAY - LEFT ANKLE REASON FOR EXAM: Male, 57 years old. Removal of exostosis. TECHNIQUE: 2 coned-down intraoperative view(s) of the ankle. COMPARISON: None. FINDINGS: Intraoperative imaging provided for exostosis removal and debridement. RAD/Ankle 2 Views IMPRESSION: Intraoperative imaging provided for exostosis removal and debridement. Electronically Signed: Camden Curiel, at 11:28 EDT , Service support ,
--- NOTE | 2018-08-30 07:30 | BON_PTH ---
PATIENT: SEAN MEYERS LOC: [facility] [place] U#:[id number] AGE/SX: 57/M ROOM: RE08/30/[address]: Dr. Ventura Vicente DPM : 1960 BED: DIS: 08/30/2018 SPEC #: [id number] RECD: 08/30/18 10:41 STATUS: DALIA ASYA #: [id number] JUDIT: 08/30/18 07:[address]: Ventura Vicente DEPT: SURGICAL PATHOLOGY RECD BY: Avery Cosby ENTERED: 08/30/18 13:27 SP TYPE: Bone OTHR DR: Dr. Adal Fry MD Tissues: Ankle, NOS Procedures: Decalcification bone/plaque Surgery Specimen Level IV HEADER OPERATION: Removal hypertrophic bone, exostosis and fragmentation PRE-OP DIAGNOSIS: Hypertrophy of bone left ankle TISSUE SUBMITTED: Left medial ankle exostosis MICROSCOPIC DIAGNOSIS Exostosis of left medial ankle, excision: Fragments of hyaline cartilage and bone with reparative and reactive change consistent with exostosis. AM:fran 09/04/18 MICROSCOPIC DESCRIPTION Slides are reviewed. GROSS DESCRIPTION Received in fixative is one container labeled with the patient's name and designated left medial ankle exostosis. The specimen consists of multiple pieces of bone that in aggregate measure 4 x 3 x 0.5 cm. The entire specimen is submitted in two cassettes after decalcification. / SJ:fran 08/30/18 TC:5 CPT: 35292, 01844
[2018-08-30] MEDS: Cefazolin 2 GM in 0.9% Normal Saline 100 ML IV (07:33)
[2018-08-30] MEDS: Bupivacaine Mpf 0.5% 30 ML VIAL (07:53)
--- NOTE | 2018-08-30 09:07 | DCINST_ITS ---
Discharge Diet: Light diet - advance as tolerated Discharge Activity: Use Crutches Weight Bearing Status: No weight bearing - No weightbearing left foot or ankle Keep extremity elevated above heart level: Left Leg - Keep left foot elevated using pillows for at least 50 minutes of every hour Call your doctor if your incision/area has: Continuous Slow Oozing, Foul Smelling Discharge Call your doctor if you observe: Fever of 101 or Higher, Coldness, Increased Pain, Shortness of breath, Chest pain, Increased palpitations (irregular heartbeat), Calf discomfort, Uncontrolled pain Cleanse incision/area with: Do not get Incision Wet, Keep Dressing Clean & Dry Allergies/Adverse Reactions: Allergies No Known Allergies Allergy (Verified 08/26/18 14:31) Medications to take at Discharge Ibuprofen 200 mg PO PRN PRN 12/21/17 omeprazole 40 mg capsule,delayed release 40 mg PO DAILY #90 cap 04/16/18 Mag/Aluminum/Sod Bicarb/Alginc [Gaviscon 80-14.2 mg Tab Chew] 1 tab PO QHS 07/29/18 Amlodipine Besylate [Norvasc] 10 mg PO DAILY 08/26/18 Lisinopril 5 mg PO DAILY 08/26/18 Hydrocodone/Acetaminophen [Vicodin 5-300 mg Tablet] 1 - 2 tab PO Q6H PRN PRN 4 Days #30 tab 08/30/18 The following prescriptions were given: Hydrocodone/Acetaminophen [Vicodin 5-300 mg Tablet] 1 - 2 tab PO Q6H PRN PRN 4 Days #30 tab PRN Reason: Pain Primary Care Physician: Adal Fry MD [Primary Care Provider] - Test Results: Test results from this visit will be discussed in further detail at your follow- up appointment, if applicable. Please Follow Up With: Ventura Vicente DPM When: within 1 week, sooner if needed
[2018-08-30 09:08] VITALS: BP 123/85; BP 134/91; PULSE 80; RESP 16; TEMP 36.9; O2SAT 98
--- NOTE | 2018-08-30 09:08 | PCM.OPRPT ---
Report of Operation Date of Procedure: 08/30/18 Pre-Operative Diagnosis: Hypertrophic bone/exostosis with bone cyst left medial malleolus/ankle Post-Operative Diagnosis: Hypertrophic bone/exostosis with bone cyst left medial malleolus/ankle Surgery/Procedure Performed:: Removal of hypertrophic bone/exostosis fragmentation with debridement and packing with Prodense graft and stabilization of deltoid ligament left ankle corporate librarian: yes - Dr. Jim Blanc Type of Anesthesia:: General, Local, Spinal Specimen's removed: Excised hypertrophic bone/exostosis fragmentation left ankle sent to pathology Estimated Blood Loss (mL): <1mL Description of Procedure: Indications: This is a 57 year old gentleman who had previous left ankle injury, and has residual pain and symptoms to the medial ankle. There is exostosis/hypertrophic bone with bony fragmentation impingement to the medial ankle with a small bone cyst to the medial malleolus. This is causing him pain, and limiting his activities. He also has trouble with shoes. Pre operative left ankle xrays and MRI were obtained which did confirm the above findings. He has pain and symptoms despite nonsurgical care including but not limited to rest, activity modifications, icing, anti-inflammatories, and bracing therapy. He elected to proceed forward with surgical intervention. This was discussed with him in great detail. Reviewed the procedures, rationale of procedures, possible benefits vs risks, goals, expectations and typical / estimated healing time. He expressed understanding and agreement. The consent forms were reviewed with him and he freely signed them. No guarentees were given nor implied. Operative Procedure: The patient was brought back to the operating room and was placed on the operating room table in the supine position. Patient was given spinal anesthesia per the anesthesia team prior to laying down on the operating room table. A timeout was performed and the patient was properly identified and the surgical plan was confimed. The patient did receive 2g of Cefazolin IV for antibiotic prophylaxis. The patient was converted to general anesthesia per the anesthesia team as the spinal anesthesia did not take. A well padded left high ankle pneumatic tourniquet was applied. The patient's left foot and ankle were scrubbed, prepped, and draped in the usual aseptic fashion. Further attention was directed to the left ankle where there was noted to be a large exostosis/hypertrophic bone to the medial malleolus. The left foot and ankle were exsanguinated using an Esmarch bandage, and the pneumatic tourniquet was inflated to 250mmHg. A curvilinear skin incision was made overlying the medial malleolus. Disection was completed down to the deltoid ligament and an incision was made using a 15 scalpel blade longitudinally long the ligament, leaving the proximal and distal attachments intact. The deltoid ligament was reflexed and the medial malleolus bone was visualized. There was noted to be a large exostosis/hypertrophic bone to the medial malleolus, this was resected using an osteotome and was sent to pathology for further evaluation. There were noted to be several fragments of bone at the distal aspect of the medial malleolus. It was noted the fragments were causing impingement to the medial ankle as well as to the posterior tibial tendon; and was noted there was a small partial tear (~15%) of the posterior tibial tendon which was repaired using 3-0 vicryl, the rest of the tendon was intact and normal in appearance. The bone fragments were carefully excised and also sent to pathology for further evaluation. There was noted to be a small bone cyst to the medial malleolus which was debrided and packed with Prodense graft. There was no noted black or guadarrama tissue, no purulence , and nothing to suggest a suspicious neoplasm or other pathology other than trauma. All removed bone was sent to pathology as specimen. The site was flushed out with copious amounts of normal saline solution. 2 Arthrex mini taks were placed to the distal medial malleolus being sure not to place in the joint. The mini taks were sutured to the deltoid ligament for stabilization. The deltoid longitudinal incision was reapproximated using 3-0 Vicryl. The ankle was put through range of motion and there was normal range of motion with no popping, clicking or crepitus at this time. The ankle was stressed and there was no instability present at this time, deltoid was strong with no instability at this time. The subcutaneous tissue was reapproximated using 4-0 Vicryl. The skin was reapproximated using 4-0 Monocryl. Cavilon was painted to the sutured skin incisions and steristrips were applied across the sutured skin incision. A total of 14mL (7mL at start and 7mL at end of procedure) was given as a local block around the surgical site of the medial ankle. Intraoperative fluoroscopy was used and confirmed proper resection of exostosis/hypertrophic bone and removal of fragmentation as noted above with no complications. A dressing was applied which consisted of betadine soaked Adaptic, 4x4 gauze, Kerlix, Abd pad, karlee bandage and a well padded below knee posterior fiberglass splint secured with karlee bandages with foot/ankle in neutral position. The pneumatic tourniquet was deflated at end of the procedure (total tourniquet time was 58 minutes), and there was immediate return of warmth and perfusion to the foot, CFT < 2 seconds to all toes with normal temperature. The patient tolerated the procedure well and the ansethesia well with no complications. Patient was transported from the operating room to the recovery room with vital signs stable and in good condition. Post operative orders were placed. Post operative instructions were reviewed with the patient both verbal as well as written. No weightbearing left foot/ankle. Keep dressing/splint clean, dry and intact, and keep the left foot/ankle elevated using pillows for at least 50 minutes of every hour. Vicodin 5/300mg tab 1-2 tabs PO q 6 hour prn pain was provided. Mechanical DVT prophylaxis reviewed with patient. Patient to follow up with me within 1 week, sooner if needed. Also of note post operative left ankle xrays, 3 views, were obtained in the PACU which were reviewed - confirmed proper resection of exostosis/hypertrophic bone and removal of fragmentation as noted above with no complications. Grafts/Implants Used: Prodense graft, 2 x Arthrex mini suture taks - Complications None
[2018-08-30 09:15] VITALS: BP 122/88; BP 134/91; PULSE 78; RESP 16; O2SAT 96
--- NOTE | 2018-08-30 09:20 | RAD_ITS ---
STUDY: X-RAY - LEFT ANKLE REASON FOR EXAM: Male, 57 years old. Postoperative imaging. TECHNIQUE: 3 view(s) of the ankle. COMPARISON: Comparison is made with prior study done earlier in the day. FINDINGS: The patient is status post resection of the osseous excrescence along the medial malleolus. Normal visualized talus and calcaneus. The visualized subtalar, talonavicular, calcaneocuboid and tarsal articulations are normal. Postoperative soft tissue swelling. RAD/Ankle min 3 Views IMPRESSION: Status post excision of the exostosis of the distal tibia. Electronically Signed: Camden Curiel, at 13:13 EDT , Service support ,
[2018-08-30 09:30] VITALS: BP 111/86; BP 134/91; PULSE 70; RESP 16; O2SAT 96
[2018-08-30 09:44] VITALS: BP 114/82; BP 134/91; PULSE 60; RESP 16; TEMP 36.3; O2SAT 97
[2018-08-30 12:52] VITALS: BP 104/79; BP 134/91; PULSE 67; RESP 16; TEMP 36.3; O2SAT 95
== END 2018-08-30 12:55 | disposition home or self-care (01) ==
LOC: SDC 05:51 → AC 05:51
PROVIDERS: Family Provider Internal Medicine; PCP Internal Medicine; Referring Provider Podiatrist; Visit Provider Podiatrist
PROC: (CPT 27635; principal; 2018-08-30 07:10)
DX: M89.372 Hypertrophy of bone, left ankle and foot (principal); M89.9 Disorder of bone, unspecified; S86.112A Strain of other muscle(s) and tendon(s) of posterior muscle group at lower leg level, left leg, initial encounter; X58.XXXA Exposure to other specified factors, initial encounter; Y93.9 Activity, unspecified; Y92.9 Unspecified place or not applicable; Y99.9 Unspecified external cause status; I10 Essential (primary) hypertension; E78.00 Pure hypercholesterolemia, unspecified; R73.03 Prediabetes; K21.9 Gastro-esophageal reflux disease without esophagitis; Z79.899 Other long term (current) drug therapy; Z85.01 Personal history of malignant neoplasm of esophagus; Z92.21 Personal history of antineoplastic chemotherapy; Z92.3 Personal history of irradiation
CPT/HCPCS: 01480; 27635; 27658; 27700; 36415; 73600; 73610; 76000; 80053; 85025; 88305; 88311; 93005; J7120; J2405

== ENCOUNTER → 2019-06-30 08:27 | Outpatient (CLI) | payer OTHER, SELFPAY ==
[2019-06-30 08:12] VITALS: BMI 27.6
[2019-06-30 13:07] LABS: Absolute Lymphocyte Count 0.82 X10^3/uL (0.83-4.51); Absolute Neutrophil Count 7.1 X10^3/uL (2.0-7.7); Basophil# 0.07 X10^3/uL; Basophil% 0.8 % (0-1); Eosinophil# 0.12 X10^3/uL; Eosinophils% 1.4 % (0-5); Hematocrit 47.7 % (40-54); Hemoglobin 15.3 g/dL (13.0-16.5); Lymphocyte # 0.82 X10^3/ul (4.0); Lymphocyte % 9.6 % (19-41); Mean Corp Hgb Conc 32.1 g/dL (32-36); Mean Corpuscular Volume 90.5 fL (80-94); Mean Platelet Vol. 11.1 fl (6.2-12.0); Monocyte# 0.47 X10^3/uL; Monocyte% 5.5 % (0-10); NRBC Flagged by Analyzer 0 % (0-5); Neutrophil # 7.05 X10^3/uL (2.7-7.7); Neutrophil % 82.3 % (47-70); Platelet Count 234 K/mm3 (150-450); RBC Distribution Width CV 12.9 % (11.6-14.6); RBC Distribution Width SD 43.2 fl (35.1-43.9); Red Blood Count 5.27 M/mm3 (4.6-6.2); White Blood Count 8.6 K/mm3 (4.4-11.0)
[2019-06-30 13:47] LABS: AST(SGOT) 20 U/L (15-37); Alanine Aminotransfer ALT/SGPT 27 U/L (16-61); Albumin, Serum 3.9 g/dL (3.2-5.0); Alkaline Phosphatase 173 U/L (45-117); Anion Gap 3 (5-15); BUN 15 mg/dL (7-18); BUN/Creat Ratio 14.2 RATIO (10-20); Calcium,Total 8.9 mg/dL (8.5-10.1); Chloride 104 mmol/L (98-107); Cholesterol 153 mg/dL (200); Creatinine, Serum 1.06 mg/dL (0.70-1.30); EST Glomerular Filtration Rate 76 mL/min (>60); Est Glom Filt Rate - Afr Amer 92 mL/min (>60); Glucose 94 mg/dL (74-106); High Density Lipoprotein 41 mg/dL; PSA,Total - Annual Screen 2.43 ng/mL (0.00-4.00); Potassium 3.8 mmol/L (3.5-5.1); Protein, Total 7.9 g/dL (6.4-8.2); Sodium Level 137 mmol/L (136-145); Triglycerides 116 mg/dL; Very Low Density Lipoprotein 23 mg/dL (5-40)
== END ==
LOC: MFPLAB 08:27
PROVIDERS: PCP Internal Medicine; Visit Provider Internal Medicine
DX: Z00.00 Encounter for general adult medical examination without abnormal findings (principal); Z12.5 Encounter for screening for malignant neoplasm of prostate; I10 Essential (primary) hypertension; K21.9 Gastro-esophageal reflux disease without esophagitis; E78.5 Hyperlipidemia, unspecified
CPT/HCPCS: 36415; 80053; 80061; 84153; 85025; G0103

== ENCOUNTER 2019-08-25 08:29 | Day surgery (SDC) | payer OTHER, SELFPAY ==
[2019-07-07 08:11] VITALS: BMI 27.6
--- NOTE | 2019-07-08 02:30 | HP_ITS ---
Intake Vital Signs 07/07/19 BMI 27.6 07/07/19 Height 5 ft 11 in 07/07/19 Weight: 193 lb 07/07/19 BMI 26.9 07/07/19 BP 150/95 H 07/07/19 Blood Pressure Location Rt brachial 07/07/19 Position Sitting 07/07/19 Respiration 18 07/07/19 Pulse 57 L 07/07/19 Pulse Source Monitor 07/07/19 Temp 98.4 F 07/07/19 Temp Source Oral 07/07/19 Pulse Oximetry (%) 98 07/07/19 Oxygen Delivery Method room air Intake Visit Reasons: Inguinal Hernia Chief Complaint: possible left inguinal hernia Hydropress Operator Required: No Is patient in pain?: No Allergies No Known Allergies Allergy (Verified 07/07/19 08:10) Medications Ibuprofen 200 mg PO PRN PRN 12/21/17 [History Confirmed 07/07/19] Lisinopril 5 mg PO DAILY 08/26/18 [History Confirmed 07/07/19] amlodipine 10 mg tablet 10 mg PO DAILY #90 tab 03/07/19 [Rx Confirmed 07/07/19] omeprazole 40 mg capsule,delayed release See Rx Instructions .ROUTE .COMPLEX #90 capsule 04/24/19 [Rx Confirmed 07/07/19] PFSH Medical History Elevated cholesterol (Acute) Viral URI (Acute) Dehydration (Acute) Lung nodule (Acute) Esophageal cancer (Acute) Surgical History History of esophagectomy (Acute) History of tonsillectomy (Acute) Status post left foot surgery (Acute) Family History (Updated 07/07/19 @ 08:07 by Yulissa Mejia) Mother Diabetes Arthritis Alzheimers disease Hypertension Father Pancreatic cancer Hypertension Social History (Updated 07/08/19 @ 14:30 by Prasanth Lou MD) Smoking Status: Never smoker alcohol intake: current alcohol intake frequency: holidays/special occasions only substance use type: does not use what type of physical activity do you participate in: aerobics, weight training frequency: 5-6 times per week HPI HPI HPI: SEAN MEYERS, is a 58 M who presents to the office today for HPI HPI Surgical H&P: Yes HPI: SEAN MEYERS, is a 58 M who presents to the office today for Left groin bulging. The patient has experienced left groin bulging for the last few months with pain. He says he does a lot of heavy lifting at work. ROS General General: No weight change, appetite, fatigue, colon cancer, breast cancer or weakness HEENT HEENT: No difficulty swallowing, eye injury, eye surgery, swollen glands or hoarseness Endo Endocrine: No thyroid disease, diabetes mellitus, thyroid cancer, Hair loss, heat intolerance or cold intolerance Skin Skin: No rash or changing moles Breast Breast: No left breast lump, right breast lump, nipple discharge, breast pain, abnormal mammogram, abnormal US or breast enlargement Musc Musculoskeletal: No back problems, arthritis, rheumatoid arthritis, gout or joint pain Cardio Cardiovascular: Yes high blood pressure; no murmur, pacemaker, heart disease, atrial fibrillation, heart attack, heart stent, palpitations, shortness of breat with exertion or chest pain Psych Psychiatric: No depression, anxiety or hearing voices Resp Respiratory: No shortness of breath, No sleep apnea, No cough, No COPD, No asthma, No emphysema, No wheezing Gastro Gastrointestinal: No abdominal pain, No nausea or vomiting, No diarrhea, No constipation, No blood in stool, Yes acid reflux, No hemorrhoids, No ulcers, No gallbladder problem, No black,tarry stools Prashant Hematologic: No blood thinners, No blood disorders, No bleeding, No anemia, No blood clots Neuro Neurologic: No system reviewed and no additional complaints, except as docu, No as per HPI, No abnormal walking, No abnormal hearing, No abnormal movements, No abnormal speech, No behavioral changes, No burning sensations, No confusion, No seizure-like activity, No unsteadiness, No dizziness, No localized weakness, No frequent falls, No headache(s), No lack of coordination, No loss of vision, No memory loss, No numbness, No other visual disturbances, No radiating pain, No restless legs, No sensory deficit, No fainting, No tingling, No tremor(s), No weakness, No other Exam Const General: cooperative Orientation: alert, oriented x3 Chest Breast Palpation: No nipple discharge Resp Effort & Inspection: normal respiratory effort Auscultation: clear to auscultation bilaterally Cardio Rate: regular rate Rhythm: regular rhythm Heart Sounds: no murmurs GI Inspection: non-distended Palpation: soft, hernia indirect inguinal on the left, nontender Assessment & Plan Problems 1. Left inguinal hernia K40.90 Plan The patient has a soft reducible left inguinal hernia. He would like this repaired. I discussed open and robotic assisted laparoscopic approach. The patient would like laparoscopic approach. I discussed the risks of the surgery as well as the surgery in detail. I discussed the risks including but not limited to bleeding, infection, spermatic cord injury, chronic groin pain, hernia recurrence. I discussed mesh placement. I also discussed the possibility of contralateral hernia and he says if 1 is present he would like it fixed. Patient understands the risks and is willing to proceed. Prasanth Lou MD Pager: [facility] [address] [place] [address], [address] [place] [address] Office: Coding Level of Care Code Off vis,new,level 3 Diagnoses Left inguinal hernia K40.90 07/08/19 1430 <Electronically signed by Prasanth minaya MD> Date _ Prasanth Lou MD I have re-examined the patient. There are no clinical changes since date of exam.
--- NOTE | 2019-08-21 08:28 | EKG12_ITS ---
Test Reason : PREOP Blood Pressure : / mmHG Vent. Rate : 053 BPM Atrial Rate : 053 BPM P-R Int : 164 ms QRS Dur : 104 ms QT Int : 420 ms P-R-T Axes : -06 -28 -12 degrees QTc Int : 394 ms Sinus bradycardia with sinus arrhythmia Incomplete right bundle branch block Borderline ECG When compared with ECG of 28-AUG-2018 15:51, Aberrant conduction is no longer Present Incomplete right bundle branch block is now Present Confirmed by ABISAI HERNADEZ, MARYCARMEN ([id number]), scientific publications editor YEN BLACKMAN ([id number]) on 08/21/2019 2:22:37 PM Referred By: Prasanth Lou Confirmed By:PASHA BARONE MD
--- NOTE | 2019-08-25 08:45 | RAD_ITS ---
STUDY: X-RAY CHEST REASON FOR EXAM: Male, 58 years old. PRE OP PATIENT STATES HX OF ESOPHAGEAL CA 5 YEARS AGO. TECHNIQUE: PA and lateral views of the chest. COMPARISON: Comparison is made with prior study dated April 21, 2015. FINDINGS: A left-sided portacatheter is in situ with the tip at the junction of the superior vena cava and right atrium. Mild degree of increased interstitial markings at the lung bases suggestive of a atelectasis and/or scarring. There is no demonstrated pleural abnormality. Normal size heart. Normal mediastinum and konstantin. Normal visualized pulmonary arteries. There is atherosclerotic calcification of the aortic arch with tortuosity. There are diffuse degenerative changes of the visualized thoracic spine. Normal visualized ribs, clavicles, and shoulders. The patient has a history of esophageal cancer. There is prominence of the retrocardiac soft tissues at the level of the thoracoabdominal hiatus. This may represent either gastric pull-through due to prior surgery versus esophageal mass. RAD/Chest PA and Lateral IMPRESSION: Mild degree of increased markings at the lung bases suggestive of atelectasis and/or scarring. Prominence of the paravertebral soft tissues at the level of the thoracic/abdomen junction suggestive of either prior gastric pull-through or possible esophageal mass. Electronically Signed: Camden Curiel, at 9:21 EDT , Service support ,
[2019-08-25 09:19] VITALS: BP 146/100; PULSE 62; RESP 16; TEMP 36.4; O2SAT 99; BMI 26.0
[2019-08-25] MEDS: Lactated Ringers 1,000 ML 100 ML IV ×2 (09:25→12:01)
--- NOTE | 2019-08-25 09:25 | PCM.HP.STD ---
Problem List (1) Left inguinal hernia Status: Acute History of Present Illness Date of Admission: 08/25/19 The patient is a 58 year old M patient has symptomatic left inguinal hernia. He has noted no changes since seeing him in the office in June. Past Medical History Past Medical History (Chronic Problems): Chronic Problems (Last Reviewed 07/07/19 @ 08:07 by Yulissa Mejia) History of esophageal cancer (Chronic) Hypertrophy of bone, left ankle and foot (Chronic) Bone spur of left ankle (Chronic) Borderline type 2 diabetes mellitus (Chronic) GERD (gastroesophageal reflux disease) (Chronic) Hyperlipidemia (Chronic) Hypertension (Chronic) Medical History: Medical History (Last Reviewed 07/07/19 @ 08:07 by Yulissa Mejia) Elevated cholesterol (Acute) E78.00 Viral URI (Acute) J06.9 Dehydration (Acute) E86.0 Lung nodule (Acute) R91.1 Esophageal cancer (Acute) C15.9 Allergies No Known Allergies Allergy (Verified 08/25/19 09:18) Home Medications: Ambulatory Orders Medication Instructions Recorded Ibuprofen 200 mg PO PRN PRN 12/21/17 Lisinopril 5 mg PO DAILY 08/26/18 amlodipine 10 mg tablet 10 mg PO DAILY #90 tab 03/07/19 Omeprazole 40 mg PO DAILY 08/18/19 Surgical History: Surgical History (Last Reviewed 07/07/19 @ 08:07 by Yulissa Mejia) History of esophagectomy (Acute) Z98.890, Z90.49 History of tonsillectomy (Acute) Z98.890, Z90.89 Status post left foot surgery Z98.890 08/30/2018 Surgical History: tonsillectomy Psychiatric History: No pertinent psych hx Smoking Status: Never smoker Tobacco Use: Non-smoker - *Family History Maternal Family History: Family History (Last Updated 07/07/19 @ 08:07 by Yulissa Mejia) Mother Diabetes Arthritis Alzheimers disease Hypertension Father Pancreatic cancer Hypertension History Items: Diabetes Paternal Family History: Family History (Last Updated 07/07/19 @ 08:07 by Yulissa Mejia) Mother Diabetes Arthritis Alzheimers disease Hypertension Father Pancreatic cancer Hypertension History Items: Diabetes Review of Systems Constitutional: Denies: Anorexia, Fever HEENT: Denies: Difficulty Swallowing Respiratory: Denies: Cough, Shortness of Breath Gastrointestinal: Reports: - - Left groin bulging. Denies: Abdominal Pain VTE Information - Inpt Only VTE Present on Admission: No VTE Mechan Device Prophylaxis: SCD's Patient Problems: Active and Suspected Problems (Last Reviewed 07/07/19 @ 08:07 by Yulissa Mejia) Left inguinal hernia (Acute) - Physical Exam Vitals/I&O's: Vital Signs Temp Pulse Resp BP Pulse Ox 97.6 F L 62 16 146/100 H 99 08/25/19 09:19 08/25/19 09:19 08/25/19 09:19 08/25/19 09:19 08/25/19 09:19 Oxygen Delivery Method Room Air Weight: 186 lb 11.704 oz Body Mass Index (BMI) 26.0 General: Alert, Oriented x3 Neck: No JVD Lungs: Normal air movement Cardiovascular: Regular rate, Regular Rhythm Abdomen: Soft, Non Tender, Non-Distended, - - Reducible left inguinal hernia Current Medications Cefazolin Sodium 2 gm/ Sodium (Chloride) 110 mls @ 150 mls/hr IV PREOP ONE Stop: 08/25/19 11:43 Assessment/Plan All Active Problems (Last Reviewed 07/07/19 @ 08:07 by Yulissa Mejia) Left inguinal hernia (Acute) Vomiting (Acute) Weight loss (Acute) Dysphagia (Acute) Ganglion cyst of left foot (Acute) Cancer of lower third of esophagus (Resolved) History of esophagectomy (Acute) History of tonsillectomy (Acute) Elevated cholesterol (Acute) Viral URI (Acute) Dehydration (Acute) Lung nodule (Acute) Esophageal cancer (Acute) 58-year-old male with left inguinal hernia 1. Patient was in the office in June and discussed left inguinal hernia with robotic assistance. The patient would like to proceed today. He did discuss contralateral hernia repair if it is present and he would like this repaired if it is present. I once again discussed the risks include but not limited to bleeding, infection, underlying bowel injury, spermatic cord injury, chronic groin pain, hernia recurrence. The patient understands all the risks as well to proceed with robotic assisted laparoscopic left inguinal hernia repair with mesh possible bilateral. Prasanth Lou MD
[2019-08-25] MEDS: Cefazolin 2 GM in 0.9% Normal Saline 100 ML IV (10:24)
[2019-08-25] MEDS: Bupivacaine Mpf 0.5% 30 ML VIAL (11:46)
[2019-08-25 12:00] VITALS: BP 126/95; BP 146/100; PULSE 72; RESP 18; TEMP 36.3; O2SAT 96
[2019-08-25 12:15] VITALS: BP 117/80; BP 146/100; PULSE 63; RESP 18; O2SAT 95
[2019-08-25 12:19] VITALS: BP 117/80; BP 146/100; PULSE 64; RESP 18; TEMP 36.2; O2SAT 95
--- NOTE | 2019-08-25 12:22 | OP.PCM_ITS ---
Problem List (1) Left inguinal hernia Status: Acute Report of Operation Date of Procedure: 08/25/19 Pre-Operative Diagnosis: Left inguinal hernia Post-Operative Diagnosis: Bilateral inguinal hernia Surgery/Procedure Performed:: Robotic assisted laparoscopic bilateral inguinal hernia repair with mesh Specimen's removed: None Description of Procedure: Patient was brought back to the operating room and general anesthesia was induced. The patient was prepped and draped in usual sterile fashion. A midline incision was made superior to the umbilicus and the fascia was elevated and incised. A finger sweep was performed and then a port was placed into the abdomen and the abdomen was insufflated to 15 mmHg. Next under direct visualization a right lateral and left lateral 8 mm port were placed. The groins were inspected and the patient had bilateral inguinal hernias. He had an indirect hernia on the left and a direct hernia on the right. The patient was placed in steep Trendelenburg position and the robot was docked. The left groin was addressed first and the peritoneum was incised using electrocautery scissors and the dissection was taken down to the hernia sac and the hernia sac was dissected free and the dissection was carried posteriorly. Next pro-vacuum closing machine operator mesh was unfolded into the left inguinal region and then the peritoneum was reapproximated using a running 3-0V lock suture to completely cover the mesh. Next the right groin was addressed and a small incision was made in the peritoneum using electrocautery scissors. Dissection was taken down to the hernia sac which was reduced and then a pro-vacuum closing machine operator mesh in the same fashion was unfolded in the right groin. The peritoneum was reapproximated using a running 3-0V lock suture completely covering the mesh. Next the air was allowed to escape the abdomen and the robot was undocked. The fascia was closed with a [id number] 0 Vicryl suture. All the incisions were anesthetized and then closed with interrupted 4 Monocryl sutures. Steri-Strips and bandages were then applied. Testicles were checked again the case and were present in the scrotum. Patient tolerated the procedure well was brought to PACU in stable condition. Grafts/Implants Used: Pro-vacuum closing machine operator mesh bilateral inguinal regions - Admit VTE Documentation VTE Mechan Device Prophylaxis: SCD's
--- NOTE | 2019-08-25 12:27 | DCINST_ITS ---
Discharge Diet: Light diet - advance as tolerated Discharge Activity: Return to Normal Activity, May Not Drive - for 2-3 days or while taking narcotic pain meds., May Shower - with the bandage in place 1-2 days after surgery. Lifting Restrictions: 20 pounds for 4 weeks. Additional Activity Instructions:: Climbing stairs is fine, walking is encouraged. Sitting in bed may be uncomfortable. Sitting up using your lateral muscles (sitting up sideways) is usually more comfortable. Do not drive, work heavy equipment of sign legal documents for 24 hours. If your hernia repair was an ingunial repair, you may have scrotal swelling, an ice pack and/or athletic support can provide more comfort. Pain medications may cause nausea, you should typically eat light foods as you take your pain medications. Pain medications may also cause constipation. If you have difficulty with this, discuss with your doctor. Call your doctor if your incision/area has: Continuous Slow Oozing, Sudden Increased Bleeding, Increased Pain/ Swelling, Increased Redness, Foul Smelling Discharge Call your doctor if you observe: Fever of 101 or Higher Suture Line Care: Avoid Pulling/Pushing, Avoid Pinching/Bending Change Dressing in (Days):: 3 - Leave steri-strips for 1 week. May protect with a guaze bandaid. Cleanse incision/area with: Keep Dressing Clean & Dry Allergies/Adverse Reactions: Allergies No Known Allergies Allergy (Verified 08/25/19 09:18) Medications to take at Discharge Ibuprofen 200 mg PO PRN PRN 12/21/17 Lisinopril 5 mg PO DAILY 08/26/18 amlodipine 10 mg tablet 10 mg PO DAILY #90 tab 03/07/19 Omeprazole 40 mg PO DAILY 08/18/19 Oxycodone HCl/Acetaminophen [Percocet 5-325 mg Tablet] 1 - 2 tab PO Q6H PRN 5 Days #20 tablet 08/25/19 The following prescriptions were given: Oxycodone HCl/Acetaminophen [Percocet 5-325 mg Tablet] 1 - 2 tab PO Q6H PRN 5 Days #20 tablet PRN Reason: Pain Score 4-10/10 Transmission Status: Sent to [facility] Orders to be completed after discharge: Chest PA and Lateral [RAD] Time Frame: 08/18/19, Facility: [facility], Location: [facility] Test Results: Test results from this visit will be discussed in further detail at your follow- up appointment, if applicable. Please Follow Up With: Prasanth Lou MD When: Please call to schedule 2 week follow up appointment. [phone]
[2019-08-25 13:10] VITALS: BP 121/92; BP 146/100; PULSE 67; RESP 16; TEMP 37.1; O2SAT 97
== END 2019-08-25 13:18 | disposition home or self-care (01) ==
LOC: SDC 08:30 → AC 08:32
PROVIDERS: PCP Internal Medicine; Referring Provider Surgery; Visit Provider Surgery
PROC: (CPT 49650; principal; 2019-08-25 10:40)
DX: K40.20 Bilateral inguinal hernia, without obstruction or gangrene, not specified as recurrent (principal); K21.9 Gastro-esophageal reflux disease without esophagitis; I10 Essential (primary) hypertension; E78.5 Hyperlipidemia, unspecified; Z85.01 Personal history of malignant neoplasm of esophagus
CPT/HCPCS: 00840; 49650; S2900; 71046; 93005; J7120; A4216; J2405

== ENCOUNTER → 2019-09-08 07:10 | Outpatient (CLI) | payer OTHER, SELFPAY ==
[2018-12-30 09:27] VITALS: BMI 27.6
[2019-08-25 09:19] VITALS: BMI 26.0
--- NOTE | 2019-09-08 07:12 | CT_ITS ---
STUDY: CT ABDOMEN AND PELVIS WITH CONTRAST REASON FOR EXAM: Male, 58 years old. Esophageal cancer surveillance, no new pain or problems. Prior surgery, chemotherapy and amp; radiation treatments, hernia repair, Power Port. RADIATION DOSAGE (If Supplied By Facility): CTDIvol = ( 16.27 ) mGy, DLP = ( 1511.53 ) mGycm TECHNIQUE: Transaxial images were obtained from the dome of the diaphragm to the symphysis pubis with oral contrast. 100mL Isovue-300 was administered. Sagittal and coronal images were reconstructed. Individualized dose optimization techniques were used for this CT. COMPARISON: None. FINDINGS: Lung bases described on chest CT report. Normal liver. Normal gallbladder and extrahepatic biliary system. Rounded mass in the anterior superior spleen measuring 2.1 cm is stable, slightly exophytic. Normal pancreas. Normal bilateral adrenal glands. Stable simple bilateral renal cysts. No hydronephrosis or solid renal masses. Nonobstructive calculus of the superior right kidney on image 36 measures 2 mm. Status post gastric pull-through procedure. Normal small intestine. There are multiple colonic diverticula consistent with diverticulosis. There is non-visualization of the appendix. There is diffuse atherosclerotic calcification of the abdominal aorta, without a demonstrated aneurysm. Normal inferior vena cava. Normal retroperitoneum. Normal urinary bladder. There is a tiny locule of air in the anterior left inguinal canal on image 116 and may relate to prior surgery (history of hernia repair). No adjacent inflammation. There is enlargement of the prostate gland. Normal abdominal wall. There are diffuse degenerative changes of the visualized lumbar spine. CT/Abdomen/Pelvis WITH Contrast IMPRESSION: 1. Since 08/12/2018, stable exam. No intra-abdominal mass or metastasis. No ascites. 2. Gastric pull-through procedure. 3. Simple bilateral renal cysts (do not require further follow-up/workup). 4. 2.2 cm exophytic enhancing lesion of the superior/medial spleen is unchanged. This is mildly increased when compared to remote CT of 01/16/2017 (measured 1.6 cm). MRI and/or ultrasound may provide additional information. Electronically Signed: Trey Canas MD ([place]) at 8:17 EDT , Service support ,
--- NOTE | 2019-09-08 07:12 | CT_ITS ---
STUDY: CT CHEST WITH CONTRAST REASON FOR EXAM: Male, 58 years old. Esophageal cancer surveillance, no new pain or problems. Prior surgery, chemotherapy and amp; radiation treatments, hernia repair, Power Port. RADIATION DOSAGE (If Supplied By Facility): CTDIvol = ( 16.27 ) mGy, DLP = ( 1511.53 ) mGycm TECHNIQUE: Transaxial imaging was performed following intravenous administration of IV 100 mL Isovue-300. Multiplanar coronal and sagittal images were reformatted. Individualized dose optimization techniques were used for this CT. COMPARISON: 08/12/2018 FINDINGS: Left subclavian chest port is stable. 7-8 mm oval-shaped noncalcified nodule in the medial right lung base on image 93 is stable. Mild parenchymal fibrotic bands are also stable. There is no demonstrated pleural abnormality. Normal heart and pericardium. Status post gastric pull-through procedure. No mediastinal adenopathy. Normal hilar regions. Normal enhanced pulmonary arteries. Normal aorta arch and descending thoracic aorta. Normal osseous structures. Upper abdomen described on abdomen/pelvis CT report. CT/Chest WITH Contrast IMPRESSION: 1. Since 08/12/2018, stable exam. No new/enlarging pulmonary nodule or mediastinal adenopathy/mass. 2. 7-8 mm nodule in the medial right lung base, stable. 3. Gastric pull-through. Electronically Signed: Trey Canas MD ([place]) at 8:12 EDT , Service support ,
[2019-09-08 07:26] LABS: CREATININE FINGERSTICK 1.2 mg/dL (0.70-1.30); EGFR FINGERSTICK > 60.0000 mL/min (>60)
[2019-09-08] MEDS: 0.9% Saline Lock 10 ML Syringe IV (08:03)
== END ==
LOC: CT 07:11
PROVIDERS: Family Provider Internal Medicine; PCP Internal Medicine; Referring Provider Internal Medicine Medical Oncology; Visit Provider Internal Medicine Medical Oncology
DX: Z85.01 Personal history of malignant neoplasm of esophagus (principal)
CPT/HCPCS: 71260; 74177; Q9967; A4216

== ENCOUNTER → 2020-07-21 14:44 | Outpatient (CLI) | payer OTHER, SELFPAY ==
[2020-07-21 14:24] VITALS: BMI 27.0
[2020-07-21 16:40] LABS: Absolute Lymphocyte Count 1.13 X10^3/uL (0.83-4.51); Absolute Neutrophil Count 6.2 X10^3/uL (2.0-7.7); Basophil# 0.07 X10^3/uL; Basophil% 0.9 % (0-1); Eosinophil# 0.13 X10^3/uL; Eosinophils% 1.6 % (0-5); Hematocrit 48.5 % (40-54); Lymphocyte # 1.13 X10^3/ul (4.0); Lymphocyte % 13.9 % (19-41); Mean Corpuscular Hgb 29.3 pg (27.0-32.0); Mean Corpuscular Volume 88.7 fL (80-94); Mean Platelet Vol. 11.3 fl (6.2-12.0); Monocyte# 0.54 X10^3/uL; Monocyte% 6.6 % (0-10); NRBC Flagged by Analyzer 0 % (0-5); Neutrophil # 6.23 X10^3/uL (2.7-7.7); Neutrophil % 76.5 % (47-70); Platelet Count 265 K/mm3 (150-450); RBC Distribution Width CV 12.4 % (11.6-14.6); RBC Distribution Width SD 40.8 fl (35.1-43.9); Red Blood Count 5.47 M/mm3 (4.6-6.2); White Blood Count 8.1 K/mm3 (4.4-11.0)
[2020-07-21 16:52] LABS: ALB/GLOB Ratio 1.1 RATIO (0.9-2.4); AST(SGOT) 21 U/L (15-37); Alanine Aminotransfer ALT/SGPT 36 U/L (16-61); Albumin, Serum 4.2 g/dL (3.2-5.0); Alkaline Phosphatase 155 U/L (45-117); Anion Gap 6 (5-15); BUN 15 mg/dL (7-18); BUN/Creat Ratio 14.3 RATIO (10-20); Calcium,Total 9.2 mg/dL (8.5-10.1); Chloride 103 mmol/L (98-107); Cholesterol 171 mg/dL (200); Creatinine, Serum 1.05 mg/dL (0.70-1.30); EST Glomerular Filtration Rate 76 mL/min (>60); Est Glom Filt Rate - Afr Amer 92 mL/min (>60); Globulin 3.9 g/dL (2.2-4.2); Glucose 92 mg/dL (74-106); High Density Lipoprotein 44 mg/dL; Potassium 4.1 mmol/L (3.5-5.1); Protein, Total 8.1 g/dL (6.4-8.2); Sodium Level 136 mmol/L (136-145); Triglycerides 96 mg/dL; Very Low Density Lipoprotein 19 mg/dL (5-40)
== END ==
PROVIDERS: PCP Internal Medicine; Referring Provider Internal Medicine; Visit Provider Internal Medicine
DX: I10 Essential (primary) hypertension (principal); R73.03 Prediabetes; E78.5 Hyperlipidemia, unspecified
CPT/HCPCS: 36415; 80053; 80061; 83036; 85025

== ENCOUNTER → 2022-03-06 | Outpatient (CLI) | payer BC, SELFPAY ==
[2022-03-06 12:50] LABS: Cholesterol 178 mg/dL (200); High Density Lipoprotein 41 mg/dL; Triglycerides 183 mg/dL; Very Low Density Lipoprotein 37 mg/dL (5-40)
[2022-03-06 13:04] LABS: Hemoglobin A1c 5.9 % (3.8-5.6)
== END | disposition home or self-care (01) ==
LOC: BIMLAB 11:05
PROVIDERS: PCP Internal Medicine; Referring Provider Internal Medicine; Visit Provider Internal Medicine
DX: R73.03 Prediabetes (principal); E78.5 Hyperlipidemia, unspecified; I10 Essential (primary) hypertension
CPT/HCPCS: 36415; 80061; 83036

== ENCOUNTER → 2022-11-20 | Outpatient (CLI) | payer BC, SELFPAY ==
[2022-11-20 12:01] LABS: Absolute Lymphocyte Count 0.87 X10^3/uL (0.83-4.51); Absolute Neutrophil Count 6.4 X10^3/uL (2.0-7.7); Basophil# 0.05 X10^3/uL; Basophil% 0.6 % (0-1); Eosinophil# 0.19 X10^3/uL; Eosinophils% 2.3 % (0-5); Hematocrit 49.2 % (40-54); Hemoglobin 16.2 g/dL (13.0-16.5); Lymphocyte # 0.87 X10^3/ul (0.83-4.51); Lymphocyte % 10.6 % (19-41); Mean Corp Hgb Conc 32.9 g/dL (32-36); Mean Corpuscular Hgb 30.2 pg (27.0-32.0); Mean Corpuscular Volume 91.8 fL (80-94); Mean Platelet Vol. 11.5 fl (6.2-12.0); Monocyte# 0.57 X10^3/uL; NRBC Flagged by Analyzer 0 % (0-5); Neutrophil # 6.44 X10^3/uL (2.7-7.7); Neutrophil % 78.9 % (47-70); Platelet Count 271 K/mm3 (150-450); RBC Distribution Width CV 13.2 % (11.6-14.6); RBC Distribution Width SD 44.4 fl (35.1-43.9); Red Blood Count 5.36 M/mm3 (4.6-6.2); White Blood Count 8.2 K/mm3 (4.4-11.0)
[2022-11-20 12:50] LABS: AST(SGOT) 20 U/L (15-37); Alanine Aminotransfer ALT/SGPT 30 U/L (16-61); Albumin, Serum 3.8 g/dL (3.2-5.0); Alkaline Phosphatase 161 U/L (45-117); Anion Gap 6 (5-15); BUN 20 mg/dL (7-18); BUN/Creat Ratio 17.2 RATIO (10-20); Calcium,Total 9.1 mg/dL (8.5-10.1); Chloride 107 mmol/L (98-107); Cholesterol 173 mg/dL (200); Creatinine, Serum 1.16 mg/dL (0.70-1.30); EST Glomerular Filtration Rate 67 mL/min (>60); Est Glom Filt Rate - Afr Amer 82 mL/min (>60); Globulin 3.9 g/dL (2.2-4.2); Glucose 110 mg/dL (74-106); High Density Lipoprotein 39 mg/dL; Potassium 4.3 mmol/L (3.5-5.1); Protein, Total 7.7 g/dL (6.4-8.2); Sodium Level 139 mmol/L (136-145); Triglycerides 184 mg/dL; Very Low Density Lipoprotein 37 mg/dL (5-40)
== END | disposition home or self-care (01) ==
LOC: BIMLAB 08:39
PROVIDERS: PCP Internal Medicine; Visit Provider Internal Medicine
DX: I10 Essential (primary) hypertension (principal); E78.5 Hyperlipidemia, unspecified; R73.03 Prediabetes
CPT/HCPCS: 36415; 80053; 80061; 83036; 85025

== ENCOUNTER → 2023-05-21 | Outpatient (CLI) | payer BC, SELFPAY ==
[2023-05-21 13:31] LABS: ALB/GLOB Ratio 1.1 RATIO (0.9-2.4); AST(SGOT) 20 U/L (15-37); Alanine Aminotransfer ALT/SGPT 28 U/L (16-61); Albumin, Serum 3.8 g/dL (3.2-5.0); Alkaline Phosphatase 154 U/L (45-117); Anion Gap 5 (5-15); BUN 19 mg/dL (7-18); Calcium,Total 8.8 mg/dL (8.5-10.1); Chloride 106 mmol/L (98-107); Creatinine, Serum 1.12 mg/dL (0.70-1.30); EST Glomerular Filtration Rate 70 mL/min (>60); Est Glom Filt Rate - Afr Amer 85 mL/min (>60); Globulin 3.4 g/dL (2.2-4.2); Glucose 122 mg/dL (74-106); Potassium 3.8 mmol/L (3.5-5.1); Protein, Total 7.2 g/dL (6.4-8.2); Sodium Level 139 mmol/L (136-145)
[2023-05-21 14:14] LABS: Hemoglobin A1c 5.8 % (3.8-5.6)
== END | disposition home or self-care (01) ==
LOC: BIMLAB 08:36
PROVIDERS: PCP Internal Medicine; Referring Provider Internal Medicine; Visit Provider Internal Medicine
DX: I10 Essential (primary) hypertension (principal); R73.03 Prediabetes
CPT/HCPCS: 36415; 80053; 83036

== ENCOUNTER → 2023-11-01 | Outpatient (CLI) | payer BC, SELFPAY ==
[2023-11-01 15:01] LABS: Absolute Lymphocyte Count 0.94 X10^3/uL (0.83-4.51); Absolute Neutrophil Count 5.9 X10^3/uL (2.0-7.7); Basophil# 0.06 X10^3/uL; Basophil% 0.8 % (0-1); Eosinophil# 0.11 X10^3/uL; Eosinophils% 1.4 % (0-5); Hematocrit 47.2 % (40-54); Hemoglobin 15.6 g/dL (13.0-16.5); Lymphocyte # 0.94 X10^3/ul (0.83-4.51); Lymphocyte % 12.2 % (19-41); Mean Corp Hgb Conc 33.1 g/dL (32-36); Mean Corpuscular Hgb 30.4 pg (27.0-32.0); Mean Platelet Vol. 10.9 fl (6.2-12.0); Monocyte# 0.67 X10^3/uL; Monocyte% 8.7 % (0-10); NRBC Flagged by Analyzer 0 % (0-5); Neutrophil # 5.89 X10^3/uL (2.7-7.7); Neutrophil % 76.3 % (47-70); Platelet Count 248 K/mm3 (150-450); RBC Distribution Width SD 43.8 fl (35.1-43.9); Red Blood Count 5.13 M/mm3 (4.6-6.2); White Blood Count 7.7 K/mm3 (4.4-11.0)
[2023-11-01 15:25] LABS: AST(SGOT) 20 U/L (15-37); Alanine Aminotransfer ALT/SGPT 28 U/L (16-61); Albumin, Serum 3.9 g/dL (3.2-5.0); Alkaline Phosphatase 148 U/L (45-117); Anion Gap 5 (5-15); BUN 15 mg/dL (7-18); BUN/Creat Ratio 12.7 RATIO (10-20); Chloride 105 mmol/L (98-107); Cholesterol 193 mg/dL (200); Creatinine, Serum 1.18 mg/dL (0.70-1.30); EST Glomerular Filtration Rate 66 mL/min (>60); Est Glom Filt Rate - Afr Amer 80 mL/min (>60); Globulin 3.8 g/dL (2.2-4.2); Glucose 74 mg/dL (74-106); High Density Lipoprotein 47 mg/dL; PSA,Total - Annual Screen 3.38 ng/mL (0.00-4.00); Potassium 3.9 mmol/L (3.5-5.1); Protein, Total 7.7 g/dL (6.4-8.2); Sodium Level 138 mmol/L (136-145); Triglycerides 154 mg/dL; Very Low Density Lipoprotein 31 mg/dL (5-40)
== END | disposition home or self-care (01) ==
LOC: BIMLAB 13:41
PROVIDERS: PCP Internal Medicine; Visit Provider Internal Medicine
DX: I10 Essential (primary) hypertension (principal); E78.5 Hyperlipidemia, unspecified; Z12.5 Encounter for screening for malignant neoplasm of prostate
CPT/HCPCS: 36415; 80053; 80061; 84153; 85025; G0103

== ENCOUNTER → 2023-12-13 | Outpatient (CLI) | payer MEDICARE, SELFPAY ==
--- NOTE | 2023-12-13 06:34 | CT_ITS ---
STUDY: CT ABDOMEN AND PELVIS WITH CONTRAST REASON FOR EXAM: Male, 62 years old. Left Inguinal Hernia RADIATION DOSAGE (If Supplied By Facility): CTDIvol = ( 18.02 ) mGy, DLP = ( 1148.98 ) mGycm TECHNIQUE: Transaxial images were obtained from the dome of the diaphragm to the symphysis pubis with oral contrast. Oral and amp; IV Readi-CAT and amp; 100mL Isovue-300 was administered. Sagittal and coronal images were reconstructed. Individualized dose optimization techniques were used for this CT. COMPARISON: Comparison is made with prior study dated September 08, 2019. FINDINGS: Minimal linear scarring at the lung bases. Coronary artery calcification. There is decreased attenuation of the liver consistent with steatosis. Normal gallbladder and extrahepatic biliary system. Stable 2.1 cm hypodensity in the anterior aspect of the spleen. There is diffuse atrophy of the pancreas. Normal bilateral adrenal glands. Normal right kidney. Stable cyst in the left upper aspect of the left kidney. There is evidence of a gastric pull-through for probable prior esophageal carcinoma. Normal small intestine. Normal colon. The appendix is visualized and appears normal. There is scattered atherosclerotic calcification of the abdominal aorta, without a demonstrated aneurysm. Normal inferior vena cava. Normal retroperitoneum. Mild degree of diffuse bilateral wall thickening. Heterogeneous enlargement of the prostate causing indentation at the bladder base. This measures 5 cm x 6.5 cm. Moderate-sized left inguinal hernia containing fat. Small right inguinal hernia containing fat. There are mild degenerative changes of the visualized lumbar spine. CT/Abdomen/Pelvis WITH Contrast IMPRESSION: Status post gastric pull-through procedure. Bilateral inguinal hernias left greater than right. Electronically Signed: Camden Curiel MD at 12:25 EDT ,
[2023-12-13 06:58] LABS: CREATININE FINGERSTICK 1.3 mg/dL (0.70-1.30); EGFR FINGERSTICK > 60.0000 mL/min (>60)
== END | disposition home or self-care (01) ==
PROVIDERS: PCP Internal Medicine; Referring Provider Internal Medicine; Visit Provider Internal Medicine
DX: Z01.812 Encounter for preprocedural laboratory examination (principal); K40.90 Unilateral inguinal hernia, without obstruction or gangrene, not specified as recurrent; Z98.890 Other specified postprocedural states; Z87.19 Personal history of other diseases of the digestive system
CPT/HCPCS: 74177; Q9967

== ENCOUNTER 2024-04-30 06:10 | Day surgery (SDC) | payer MEDICARE, SELFPAY ==
[2024-04-30] VITALS (8 sets, daily range): BP systolic 125–146; BP diastolic 79–100; PULSE 48–97; RESP 14–16; TEMP 36.1–36.6; O2SAT 98–100; BMI 25.8
--- NOTE | 2024-04-30 06:23 | EKG12_ITS ---
Test Reason : PRE OP Blood Pressure : */* mmHG Vent. Rate : 48 BPM Atrial Rate : 48 BPM P-R Int : 192 ms QRS Dur : 90 ms QT Int : 438 ms P-R-T Axes : 18 -20 2 degrees QTcB Int : 391 ms Sinus bradycardia Increased R/S ratio in V1, consider early transition or posterior infarct Abnormal ECG When compared with ECG of 21-Aug-2019 08:32, Incomplete right bundle branch block is no longer Present Confirmed by PHILL HERNADEZ, JEISON ([id number]), editor sound CARMITA HUTCHINS ([id number]) on 04/30/2024 2:15:01 PM Referred By: Prasanth Lou Confirmed By: JEISON POLLOCK MD
[2024-04-30] MEDS: Lactated Ringers 1,000 ML 15 ML IV (07:03)
[2024-04-30] MEDS: Bupiv/Epi 0.25% 30 ML Vial (07:16)
--- NOTE | 2024-04-30 07:37 | PCM.PRE.AN2 ---
ASA Classification* ASA Classification ASA Classification: 2 Assessment & Plan Anesthesia* Anesthesia Assessment Anesthesia Assessment: Discussed sedation and/or anesthesia options, risks, benefits, and alternatives with patient/parents/legal guardian/POA. Questions invited. The patient/parents/legal guardian/POA seems to understand and agrees to proceed with anesthesia plan. Reviewed the physical assessment, medical history, allergy history and patient home medications list prior to surgery/procedure/anesthetic and documented any changes. Performed airway and anesthesia risk assessments. Anesthesia Type Anesthesia Type: General (Glidescope rec on previous anesthesia record) Anesthesia Focused Assessment* Temperature: 97.1 F Pulse Rate: 48 Blood Pressure: 146/96 Respiratory Rate: 14 Pulse Ox: 100 Airway Assessment Mouth opens: >3 cm Mallampati Score: II Focused Labs Anesthesia Preop lab: CBC WBC 7.3 K/mm3 (4.4-11.0) 12/18/23 10:25 RBC 5.29 M/mm3 (4.6-6.2) 12/18/23 10:25 Hgb 16.6 g/dL (13.0-16.5) H 12/18/23 10:25 Hct 49.1 % (40-54) 12/18/23 10:25 Plt Count 257 K/mm3 (150-450) 12/18/23 10:25 CHEMISTRY Potassium 4.5 mmol/L (3.5-5.1) 12/18/23 10:25 Sodium 137 mmol/L (136-145) 12/18/23 10:25 Magnesium 2.2 mg/dL (1.8-2.4) 08/10/16 10:14 BUN 18 mg/dL (7-18) 12/18/23 10:25 Creatinine 1.37 mg/dL (0.70-1.30) H 12/18/23 10:25 Glucose 112 mg/dL (74-106) H 12/18/23 10:25 TSH 2.30 uIU/mL (0.358-3.74) 11/02/14 09:41 COAG Pre-Assessment Diagnosis/Proposed Procedure Planned Operative Procedure(s): OPEN LEFT INGUINALK HERNIA WITH MESH Anesthesia History 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 When Was Last Pacemaker Check QUESTION #4 FULL TEXT: You/Your Family Experience fever (hyperthermia) with Anesthesia Last Oral Intake Last Oral intake: Last Oral Intake NPO since 05:30 04/30/24 06:53 Meds taken in AM with sips of No 04/30/24 06:53 water? 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: PONV - explosive operator supervisor Female No 04/23/24 13:42 HX of Motion Sickness No 04/23/24 13:42 HX of N/V After Surgery No 04/23/24 13:42 Non-Smoker Yes 04/23/24 13:42 Duration of Surgery greater No 04/23/24 13:42 than 60 minutes Number of Risk Factors 1 04/23/24 13:42 PONV Score Low Risk 04/23/24 13:42 Height & Weight Height & Weight: Anesthesia: Height & Weight Height 5 ft 11 in 04/30/24 06:53 Weight: 84 kg 04/30/24 06:53 Body Mass Index (BMI) 25.8 04/30/24 06:53 Respiratory Assessment Respiratory Assessment - explosive operator supervisor: Respiratory Tract Infection Hx - explosive operator supervisor Hx Respiratory Tract Infection No 04/23/24 13:42 STOP Sleep Apnea STOP Sleep Apnea - explosive operator supervisor: STOP Sleep Apnea - explosive operator supervisor Hx Hypertension Yes: CONTROLLED WITH MEDS 04/23/24 13:42 Hx Sleep Apnea No 04/23/24 13:42 CPAP No 08/25/19 12:00 BIPAP No 08/18/19 09:59 Do you snore loudly (louder No 04/23/24 13:42 than talking or can be heard Do you often feel tired/ No 04/23/24 13:42 fatigued/ sleepy during daytime? Has anyone observed you stop No 04/23/24 13:42 breathing during sleep? STOP Results Negative 04/23/24 13:42 QUESTION #5 FULL TEXT : Do you snore loudly (louder than talking or can be heard through closed doors)? 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 Specify any problems Hx of Preganancy in last 3 N/A 04/23/24 13:42 Months Nurse Filling Out Transfusion DSCHRIBER 04/23/24 13:42 & Questions: Date: 04/23/24 04/23/24 13:42 Time: 13:43 04/23/24 13:42 Patient unable to answer at this time (ie. confused, unrespo /Reproduction History /Reproductive History - explosive operator supervisor: /Reproductive Hx- explosive operator supervisor Hx Now No 04/23/24 13:42 Gestational Age (in weeks): EDC: Hx Hx Para Hx Section SAB No 04/23/24 13:42 Active Medications Active Medications: Current Medications Generic Name Dose Route Start Last Admin Trade Name Freq PRN Reason Stop Dose Admin Cefazolin Sodium 2 gm/ N/A 20 mls @ 400 mls/hr 04/30/24 08:00 IV 04/30/24 08:02 PREOP ONE Lactated Ringer's 1,000 mls @ 15 mls/hr 04/30/24 06:30 04/30/24 07:03 IV 05/03/24 01:09 15 mls/hr .Q48H UMER Administration Protocol PFSH Medical History Wears glasses Cancer Gastric reflux Hypertension History of stress test Screening for prostate cancer Flu vaccine need Health care maintenance Vertigo Preventative health care Elevated cholesterol Viral URI Dehydration Lung nodule Esophageal cancer Home Medications ?Medication ?Instructions ?Recorded ?Last Taken ?Type ibuprofen 200 mg tablet 200 mg PO PRN PRN Pain 12/21/17 12/16/17 History pantoprazole 40 mg tablet,delayed 40 mg PO DAILY 11/20/22 04/29/24 History release amlodipine 10 mg tablet 10 mg PO DAILY blood pressure #90 02/21/24 04/29/24 Rx tabs lisinopril 5 mg tablet 5 mg PO DAILY blood pressure #90 02/21/24 04/28/24 Rx tabs Allergy/AdvReac Type Severity Reaction Status Date / Time No Known Allergies Allergy Verified 04/30/24 06:52 Family History Mother Diabetes Arthritis Alzheimers disease Hypertension Father Pancreatic cancer Hypertension Surgical History Hx of colonoscopy History of esophagogastroduodenoscopy (EGD) Hx of bilateral inguinal hernia repair History of hernia repair Status post left foot surgery History of esophagectomy History of tonsillectomy Social History Smoking Status: Never smoker alcohol intake: current alcohol intake frequency: holidays/special occasions only substance use type: does not use what type of physical activity do you participate in: aerobics and weight training frequency: 5-6 times per week Review of Systems (Anesthesia) ROS Narrative System reviewed and no additional complaints, except as documented.
--- NOTE | 2024-04-30 07:43 | PCM.HP.BLA ---
History and Physical Date of Admission: 04/30/24 Intake Vital Signs 11/22/2408:18 12/18/2407:42 Height 5 ft 11 in 5 ft 11 in Weight: 195 lb BMI 27.1 BP 113/79 Blood Pressure Location Rt brachial Position Sitting Respiration 17 Pulse 81 Pulse Source Monitor Temp 97.6 F L Temp Source Temporal Pulse Oximetry (%) 99 Oxygen Delivery Method room air Intake Visit Reasons: INGUINAL HERNIA Chief Complaint: possible hernia Is patient in pain?: No Allergies No Known Allergies Allergy (Verified 12/18/23 11:39) Medications ?Medication ?Instructions ?Recorded ?Confirmed ?Type ibuprofen 200 mg tablet 200 mg PO PRN PRN Pain 12/21/17 12/18/23 History pantoprazole 40 mg tablet,delayed 40 mg PO DAILY 11/20/22 12/18/23 History release amlodipine 10 mg tablet 10 mg PO DAILY blood pressure #90 10/08/23 12/18/23 Rx tabs lisinopril 5 mg tablet 5 mg PO DAILY blood pressure #90 10/08/23 12/18/23 Rx tabs Have you fallen in the past year?: No PFSH Medical History Screening for prostate cancer Flu vaccine need Health care maintenance Vertigo Preventative health care Elevated cholesterol Viral URI Dehydration Lung nodule Esophageal cancer Surgical History History of hernia repair Status post left foot surgery History of esophagectomy History of tonsillectomy Family History Mother Diabetes Arthritis Alzheimers disease HypertensionFather Pancreatic cancer Hypertension Social History Smoking Status: Never smoker alcohol intake: current alcohol intake frequency: holidays/special occasions only substance use type: does not use what type of physical activity do you participate in: aerobics and weight training frequency: 5-6 times per week HPI HPI HPI: Patient is a 63-year-old male here with inguinal hernia. The hernia is on the left. This is a recurrance. He has had history of hernia repair on the left. The patient reports bulging and pain. He denies nausea and vomiting. No symptoms on the opposite side. ROS General General: No weight change, appetite, fatigue, colon cancer, breast cancer or weakness HEENT HEENT: No difficulty swallowing, eye injury, eye surgery, swollen glands or hoarseness Endo Endocrine: No thyroid disease, diabetes mellitus, thyroid cancer, Hair loss, heat intolerance or cold intolerance Skin Skin: No rash or changing moles Musc Musculoskeletal: No back problems, arthritis, rheumatoid arthritis, gout or joint pain Cardio Cardiovascular: Yes high blood pressure; No murmur, pacemaker, heart disease, atrial fibrillation, heart attack, heart stent, palpitations, shortness of breat with exertion or chest pain Psych Psychiatric: No depression, anxiety or hearing voices Resp Respiratory: No shortness of breath, No sleep apnea, No cough, No COPD, No asthma, No emphysema and No wheezing Gastro Gastrointestinal: No abdominal pain, No nausea or vomiting, No diarrhea, No constipation, No blood in stool, No acid reflux, No hemorrhoids, No ulcers, No gallbladder problem and No black,tarry stools Prashant Hematologic: No blood thinners, No blood disorders, No bleeding, No anemia and No blood clots Neuro Neurologic: No system reviewed and no additional complaints, except as documented, No as per HPI, No abnormal gait, No abnormal hearing, No abnormal movements, No abnormal speech, No behavioral changes, No burning sensations, No confusion, No convulsions, No disequilibrium, No dizziness, No localized weakness, No frequent falls, No headache(s), No lack of coordination, No loss of vision, No memory loss, No numbness, No other visual disturbances, No radicular pain, No restless legs, No sensory deficit, No syncope, No tingling, No tremor(s), No weakness and No other Exam Const General: cooperative Orientation: alert and oriented x3 HENMT Head: normal to inspection Neck Neck: normal visual inspection and full ROM Chest Chest palpation & inspection: normal inspection of the chest Resp Effort & Inspection: normal respiratory effort Auscultation: clear to auscultation bilaterally Cardio Rate: regular rate Rhythm: regular rhythm GI Inspection: non-distended Palpation: soft, hernia direct inguinal on the left and nontender Skin General: no rashes or lesions noted Neuro General: patient alert and patient oriented x3 Extrem General: full ROM Psych Appearance: grossly normal Mental Status: mental status grossly normal Assessment and Plan Assessment and Plan (1) LEFT inguinal hernia: Status: Acute Plan: The patient has a left recurrent inguinal hernia and I discussed open recurrent left inguinal hernia repair with mesh. I discussed the risks including but not limited to bleeding, infection, injury other organs such as the bowel or bladder or blood supply to the testicle. Patient understands the risks and is willing to proceed. Prasanth Lou MD Pager: [facility] [address] [place] [address] [address] [place] [address] Office: I have seen and examined the patient. Left Recurrent inguinal hernia and the plan is for open repair as he has had this repaired robotically in the past.
[2024-04-30] MEDS: Cefazolin 2 GM in Syringe IV (07:54)
--- NOTE | 2024-04-30 09:00 | OP.PCM_ITS ---
Operative Report (Standard) Operative Information Surgery/Procedure Performed: Recurrent left inguinal hernia repair with mesh Surgeon: Prasanth Lou Date of Procedure: 04/30/24 Procedure Start Time: 08:02 Procedure Stop Time: 08:50 Pre-Operative Diagnosis: Recurrent left inguinal hernia Post-Operative Diagnosis: Recurrent left inguinal hernia Select all DRAINS/GRAFTS/IMPLANTS that apply: Implanted device Implanted device details: Bard keyhole mesh Type of Anesthesia: General/Regional Estimated Blood Loss: 5 Specimen collected: No Description of surgery: Patient was brought back to the operating room and general anesthesia was induced. The left groin was prepped and draped in usual sterile fashion. Incision was then marked with a pen and injected with local anesthetic. Incision was then made and the vein was clamped and divided and ligated using 3- 0 silk. Next the dissection was carried down to the external aponeurosis. The ilioinguinal nerve was identified and spared. The external aponeurosis was opened with a scalpel and then the hemostats were used to elevate both sides and then scissors were used to take it down to the external opening and upward toward the abdomen. Next the spermatic cord was isolated and surrounded with a Lila drain. There appeared to be recurrence in a direct fashion. The hernia sac was divided off of the cord and reduced. Next a keyhole Bard mesh was selected and sutured to the pubic tubercle using 2-0 PDS suture. It was then sutured to the shelving portion of the inguinal ligament using interrupted 2-0 PDS sutures. It was placed around the cord and then sutured to the conjoined tendon with interrupted 2-0 PDS sutures. Next the tails were placed around the cord and sutured together using 2-0 PDS. They were tucked under the external aponeurosis. The ilioinguinal nerve was spared throughout the procedure. Next the area was irrigated and suctioned dry and there was good hemostasis. The external aponeurosis was closed from the lateral to medial portion with a running 3-0 Vicryl suture. Matheus's fascia was closed with 3-0 Vicryl sutures. The skin was closed with a running 4-0 Monocryl suture. Dermabond was applied. Scrotum was checked at the end of the case and contain both testicles. Patient was taken to PACU in stable condition and tolerated the procedure well. Surgical Findings: Left inguinal hernia Director Of Athletics transitional kindergarten teacher: Yes Software Licensing Specialist: Amol Harrison Tasks completed by sales and marketing assistant: Closing and Retracting Complications Complications: No Admit VTE Documentation VTE Mechan Device Prophylaxis: SCD's
--- NOTE | 2024-04-30 09:05 | DCINST_ITS ---
Discharge Instructions Procedure Hernia Diet Discharge Diet: Light diet - advance as tolerated Activity Discharge Activity: May Not Drive (for 2-3 days or while taking narcotic pain meds.) and May Shower (tomorrow) Lifting Restrictions: 20 pounds for 6 weeks. Additional Activity Instructions:: Climbing stairs is fine, walking is encouraged. Sitting in bed may be uncomfortable. Sitting up using your lateral muscles (sitting up sideways) is usually more comfortable. Do not drive, work heavy equipment of sign legal documents for 24 hours. If your hernia repair was an inguinal repair, you may have scrotal swelling, an ice pack and/or athletic support can provide more comfort. Pain medications may cause nausea, you should typically eat light foods as you take your pain medications. Pain medications may also cause constipation. If you have difficulty with this, discuss with your doctor. Alternate ibuprofen and Tylenol for pain control, oxycodone for breakthrough pain. Dressing / Incision Call your doctor if your incision/area has: Continuous Slow Oozing, Sudden Increased Bleeding, Increased Pain/ Swelling, Increased Redness and Foul Sme lling Discharge Call your doctor if you observe: Fever of 101 or Higher Suture Line Care: Avoid Pulling/Pushing and Avoid Pinching/Bending Cleanse incision/area with: Soap & Water Follow Up Care Please Follow Up With: Prasanth Lou MD When: Please call to schedule 2 week follow up appointment. [phone] Test Results: Test results from this visit will be discussed in further detail at your follow- up appointment, if applicable. Discharge Plan Admission Attending Provider: Prasanth Lou Primary Care Provider: Adal Fry Instructions Print Language: [place] Discharge Orders/Prescriptions Prescriptions: New oxycodone 5 mg Tablet 5 - 10 mg PO Q4H PRN PRN (Reason: Pain Score 4-10) 5 Days Qty: 15 0RF No Action pantoprazole 40 mg tablet,delayed release (DR/EC) 40 mg PO DAILY ibuprofen 200 MG tablet 200 mg PO PRN PRN (Reason: Pain) lisinopril 5 mg tablet 5 mg PO DAILY Qty: 90 0RF amlodipine 10 mg tablet 10 mg PO DAILY Qty: 90 0RF Referrals / Follow Up: Adal Fry MD [Primary Care Provider] - Disposition Disposition (needs filled in before D/C Order can be placed): Home, Self Care
--- NOTE | 2024-04-30 09:05 | PCM.POST.ANE ---
Anesthesia: Postop Eval I Current Vital Signs Temperature: 97 F Pulse Rate: 97 Blood Pressure: 144/85 Respiratory Rate: 16 Pulse Ox: 100 Oxygen Delivery Method: Room Air Assessment Airway patent: Yes Spontaneous unlabored respirations: Yes Mental status: Awake and Calm nausea: No Vomiting: No Anesthesia Complication: No Fluid Hydration Crystalloid volume administer (ml): 700 Total IV fluid infused: 700 Progress Note Anesthesia document: Postop Eval 1 completed: Yes
--- NOTE | 2024-04-30 09:23 | PCM.POSTANE2 ---
Anesthesia Postop Eval I Sum Postop Eval Completion status Anesthesia document: Postop Eval 1 completed: Yes Anesthesia Postop Eval I Summary Anesthesia Postop Eval I Summary: Anesthesia Postop Eval I: Assessment Summary Airway patent Yes 04/30/24 09:06 Spontaneous unlabored Yes 04/30/24 09:06 respirations Mental status Awake,Calm 04/30/24 09:06 nausea No 04/30/24 09:06 Vomiting No 04/30/24 09:06 Anesthesia Postop Eval I: Fluid Summary Crystalloid volume administer 700 04/30/24 09:06 (ml) Colloids volume administered ( ml) Blood Product volume administered (ml) Total IV fluid infused 700 04/30/24 09:06 Anesthesia Postop Eval I: Summary Notes Anesthesia Complication No 04/30/24 09:06 Anesthesia Complication Comment: Post-operative progress note Anesthesia: Postop Eval II Evaluation Mental status: Awake Pain Level: 0 nausea: No Vomiting: No
== END 2024-04-30 12:12 | disposition home or self-care (01) ==
LOC: SDC 06:12 → AC 06:15
PROVIDERS: PCP Internal Medicine; Referring Provider Surgery; Visit Provider Surgery
PROC: (CPT 49520; principal; 2024-04-30 07:45)
DX: K40.91 Unilateral inguinal hernia, without obstruction or gangrene, recurrent (principal); R73.03 Prediabetes; K21.9 Gastro-esophageal reflux disease without esophagitis; I10 Essential (primary) hypertension; Z79.899 Other long term (current) drug therapy
CPT/HCPCS: 49520; 00830; J7120; 93005; C1781; J2405

== ENCOUNTER → 2024-05-23 | Outpatient (CLI) | payer MEDICARE, SELFPAY ==
[2024-05-23 12:07] LABS: Absolute Lymphocyte Count 0.96 X10^3/uL (0.83-4.51); Absolute Neutrophil Count 5.4 X10^3/uL (2.0-7.7); Basophil# 0.05 X10^3/uL; Basophil% 0.7 % (0-1); Eosinophil# 0.14 X10^3/uL; Eosinophils% 1.9 % (0-5); Hematocrit 46.3 % (40-54); Hemoglobin 15.3 g/dL (13.0-16.5); Lymphocyte # 0.96 X10^3/ul (0.83-4.51); Lymphocyte % 13.4 % (19-41); Mean Corpuscular Hgb 30.8 pg (27.0-32.0); Mean Corpuscular Volume 93.3 fL (80-94); Mean Platelet Vol. 11.5 fl (6.2-12.0); Monocyte% 8.3 % (0-10); NRBC Flagged by Analyzer 0 % (0-5); Neutrophil % 75.1 % (47-70); Platelet Count 257 K/mm3 (150-450); RBC Distribution Width CV 13.1 % (11.6-14.6); RBC Distribution Width SD 44.6 fl (35.1-43.9); Red Blood Count 4.96 M/mm3 (4.6-6.2); White Blood Count 7.2 K/mm3 (4.4-11.0)
[2024-05-23 12:27] LABS: Hemoglobin A1c 5.7 % (3.8-5.6)
[2024-05-23 13:03] LABS: ALB/GLOB Ratio 1.1 RATIO (0.9-2.4); AST(SGOT) 17 U/L (15-37); Alanine Aminotransfer ALT/SGPT 22 U/L (16-61); Albumin, Serum 3.8 g/dL (3.2-5.0); Alkaline Phosphatase 152 U/L (45-117); Anion Gap 5 (5-15); BUN 17 mg/dL (7-18); BUN/Creat Ratio 13.9 RATIO (10-20); Calcium,Total 9.2 mg/dL (8.5-10.1); Chloride 106 mmol/L (98-107); Creatinine, Serum 1.22 mg/dL (0.70-1.30); EST Glomerular Filtration Rate 63 mL/min (>60); Est Glom Filt Rate - Afr Amer 77 mL/min (>60); Globulin 3.4 g/dL (2.2-4.2); Glucose 117 mg/dL (74-106); Protein, Total 7.2 g/dL (6.4-8.2); Sodium Level 139 mmol/L (136-145)
== END | disposition home or self-care (01) ==
PROVIDERS: PCP Internal Medicine; Referring Provider Internal Medicine; Visit Provider Internal Medicine
DX: I10 Essential (primary) hypertension (principal); E78.5 Hyperlipidemia, unspecified; R73.03 Prediabetes
CPT/HCPCS: 36415; 80053; 83036; 85025